=== PATIENT | male | born 1945 | race Caucasian/White ===

== ENCOUNTER 2017-08-29 13:01 | Inpatient (IN) | payer MEDICARE ==
[2017-08-29] VITALS (11 sets, daily range): BP systolic 160–203; BP diastolic 75–98; PULSE 77–98; RESP 16–30; TEMP 97.8–100; O2SAT 90–100
[~2017-08-29] VITALS: Ht 182.9 cm; Wt 75.3 kg
[~2017-08-29 13:01] MED LIST: AMLO5TAB96 PO; COUM3TAB PO; SYNT25TA PO
[2017-08-29] MEDS ORDERED: SODIUM CHLOR 0.9% 1000 ML INJ 1,000 ML IV ONE (13:03)
[2017-08-29 13:15] LABS: AUTOMATED NEUTROPHIL # 4.3 TH/MM3 (1.8-7.7); BASOPHIL # 0.1 TH/MM3 (0-0.2); BASOPHIL % 1.2 % (0.0-2.0); EOSINOPHIL # 0.1 TH/MM3 (0-0.4); EOSINOPHIL % 2.4 % (0.0-4.0); HEMATOCRIT 42.5 % (39.0-51.0); HEMOGLOBIN 14.3 GM/DL (13.0-17.0); LYMPH % 12.5 % (9.0-44.0); LYMPHOCYTE # 0.7 TH/MM3 (1.0-4.8); MEAN CELL VOLUME 98.4 FL (80.0-100.0); MEAN CORPUSCULAR HGB CONC 33.5 % (32.0-36.0); MEAN PLATELET VOLUME 7.4 FL (7.0-11.0); MONOCYTE # 0.6 TH/MM3 (0-0.9); NEUT % 73.9 % (16.0-70.0); PLATELET COUNT 203 TH/MM3 (150-450); RED BLOOD COUNT 4.32 MIL/MM3 (4.50-5.90); RED CELL DISTRIBUTION WIDTH 12.6 % (11.6-17.2); WHITE BLOOD COUNT 5.8 TH/MM3 (4.0-11.0)
[2017-08-29 13:28] LABS: PROTHROMBIN TIME - PATIENT 10.2 SEC (9.8-11.6)
[2017-08-29] MEDS ORDERED: niCARdipine INJ 25 MG in SODIUM CHLOR 0.9% 250 ML INJ 240 ML IV ONE (13:30)
[2017-08-29 13:35] LABS: CHLORIDE 98 MEQ/L (98-107); SODIUM (NA) 135 MEQ/L (136-145)
--- NOTE | 2017-08-29 13:37 | PD ---
HPI Time Seen by Provider: 13:03 History of Present Illness HPI Patient presents via [facility], stroke alert. 72-year-old male history of hypertension and GI bleed 3 years ago. History of left-sided DVT 8-10 years ago. No medications for 2 years. Nonsmoker. Nondiabetic. Per the patient went for a walk at 10 AM and had no deficits at that time. Returned from his walker 11:30 with left-sided weakness and left-sided gaze. Patient's gave him 2 baby aspirin and called [facility]. Blood pressure per [facility] 204/95 with a blood sugar of 90. Per the patient is a heavy drinker. PFSH Past Medical History Diminished Hearing: No Hypertension: Yes Musculoskeletal: Yes Neurologic: No Psychiatric: No Respiratory: Yes (CLOT IN LUNG) Immunizations Current: No Thyroid Disease: Yes Social History Alcohol Use: Yes (OCCASIONAL) Tobacco Use: No Substance Use: No Allergies-Medications (Allergen,Severity, Reaction): Coded Allergies: No Known Allergies (Unverified Allergy, Unknown, 08/29/17) Reported Meds & Prescriptions Reported Meds & Active Scripts Active Reported Synthroid (Levothyroxine Sodium) 25 Mcg Tab 25 Mcg PO DAILY Norvasc (Amlodipine Besylate) 5 Mg Tab 5 Mg PO DAILY Coumadin (Warfarin Sodium) 3 Mg Tab 3 Mg PO DAILY Per patient's, patient is on no medication, she did give him 2 aspirin prior to arrival Review of Systems ROS Limitations: Altered Mental Status General / Constitutional: No: Fever Eyes: No: Visual changes HENT: No: Headaches Cardiovascular: No: Chest Pain or Discomfort Respiratory: No: Shortness of Breath Gastrointestinal: No: Abdominal Pain Genitourinary: No: Dysuria Musculoskeletal: No: Pain Skin: No Rash Neurologic: Positive: Weakness, Focal Abnormalities, Coordination Problem Psychiatric: No: Depression Endocrine: No: Polydipsia Hematologic/Lymphatic: No: Easy Bruising Physical Exam Narrative GENERAL: Alert and oriented to place and month and age SKIN: Focused skin assessment warm/dry. HEAD: Atraumatic. Normocephalic. EYES: Pupils equal and round reactive to light accommodation no scleral icterus. No injection or drainage. ENT: No nasal bleeding or discharge. Mucous membranes pink and moist. NECK: Trachea midline. No JVD. CARDIOVASCULAR: Regular rate and rhythm. No murmur appreciated. RESPIRATORY: No accessory muscle use. Clear to auscultation. Breath sounds equal bilaterally. GASTROINTESTINAL: Abdomen soft, non-tender, nondistended. Hepatic and splenic margins not palpable. MUSCULOSKELETAL: No obvious deformities. No clubbing. No cyanosis. No edema. NEUROLOGICAL: Awake and alert. No obvious cranial nerve deficits. Left-sided gaze. Drift left upper extremity less than 5 seconds with weakness. Drift left lower extremity less than 5 seconds with weakness. Normal speech. Hesitant /pause on responses to questions and commands PSYCHIATRIC: Appropriate mood and affect NIHSS scale of 6 Data Data Last Documented VS Vital Signs Date Time Temp Pulse Resp B/P (MAP) Pulse Ox O2 Delivery O2 Flow Rate FiO2 08/29/17 13:31 76 203/96 08/29/17 13:01 98.1 16 90 Orders Orders Cath For Specimen (08/29/17 13:03) Neuro Checks Q2HX12,Q4H (08/29/17 13:03) Nursing Bedside Swallow Assess .ONCE (08/29/17 13:03) Activity Bed Rest (08/29/17 13:03) Diet Npo (08/29/17 Lunch) Prothrombin Time / Inr (Pt) (08/29/17 13:03) Act Partial Throm Time (Ptt) (08/29/17 13:03) Complete Blood Count With Diff (08/29/17 13:03) Basic Metabolic Panel (Bmp) (08/29/17 13:03) Fibrinogen (08/29/17 13:03) Creatine Kinase (Cpk) (08/29/17 13:03) Troponin I (08/29/17 13:03) Ua Includes Microscopic (08/29/17 13:03) Drug Screen, Random Urine (08/29/17 13:03) Type And Screen (08/29/17 13:03) Ct Brain W/O Iv Contrast(Rout) (08/29/17 ) Electrocardiogram (08/29/17 ) Consult Neurology (08/29/17 13:03) Sodium Chlor 0.9% 1000 Ml Inj (Ns 1000 M (08/29/17 13:03) Blood Glucose (08/29/17 13:03) Ecg Monitoring (08/29/17 13:03) Iv Access Insert/Monitor (08/29/17 13:03) NPO (08/29/17 13:03) Oximetry (08/29/17 13:03) Oxygen Administration (08/29/17 13:03) Resp Oxygen Lukas C Titrat 1-4 L (08/29/17 13:03) Nicardipine Inj (Cardene Inj) (08/29/17 13:30) (Hub Use Only)Inp Phy Cons/Ref (08/29/17 ) ^ Call Pharmacy (08/29/17 13:38) Nih Stroke Scale - Nihss .ONCE (08/29/17 13:38) Urinary Catheter Insert/Apply (08/29/17 13:38) Anticoagulant Alert (08/29/17 13:38) ^ Post Infusion Restrictions (08/29/17 13:38) ^ Medication Alert (08/29/17 13:38) Vital Signs (Adult) .As directed (08/29/17 13:38) Notify Dr: Blood Pressure (08/29/17 13:38) ^ Medication Alert (08/29/17 13:38) Alteplase Bolus (Activase Bolus) (08/29/17 13:45) Alteplase Drip (Activase Drip) (08/29/17 13:45) Sodium Chloride 0.9% Inj (Ns Inj) (08/29/17 13:45) Misc Nursing Information (08/29/17 13:45) Resp Oxygen Lukas C Titrat 1-4 L (08/29/17 ) Labetalol Inj (Trandate Inj) (08/29/17 13:45) CKMB (08/29/17 13:00) CKMB% (08/29/17 13:00) Cta Brain W Iv Contrast W 3d (08/29/17 ) Cta Neck W Iv Contrast W 3d (08/29/17 ) Echo 2d Comp With Doppler (08/29/17 ) Lipid Profile (08/29/17 13:51) Mri Brain W&W/O Contrast (08/29/17 ) Admit Order (Ed Use Only) (08/29/17 ) Vital Signs (Adult) Q4H (08/29/17 14:13) Diet Npo (08/29/17 Dinner) Activity Bed Rest (08/29/17 14:13) Notify Dr: Other (08/29/17 14:13) Labs Laboratory Tests Test 08/29/17 13:00 08/29/17 13:56 White Blood Count 5.8 TH/MM3 Red Blood Count 4.32 MIL/MM3 Hemoglobin 14.3 GM/DL Hematocrit 42.5 % Mean Corpuscular Volume 98.4 FL Mean Corpuscular Hemoglobin 33.0 PG Mean Corpuscular Hemoglobin Concent 33.5 % Red Cell Distribution Width 12.6 % Platelet Count 203 TH/MM3 Mean Platelet Volume 7.4 FL Neutrophils (%) (Auto) 73.9 % Lymphocytes (%) (Auto) 12.5 % Monocytes (%) (Auto) 10.0 % Eosinophils (%) (Auto) 2.4 % Basophils (%) (Auto) 1.2 % Neutrophils # (Auto) 4.3 TH/MM3 Lymphocytes # (Auto) 0.7 TH/MM3 Monocytes # (Auto) 0.6 TH/MM3 Eosinophils # (Auto) 0.1 TH/MM3 Basophils # (Auto) 0.1 TH/MM3 CBC Comment DIFF FINAL Differential Comment Prothrombin Time 10.2 SEC Prothromb Time International Ratio 1.0 RATIO Activated Partial Thromboplast Time 22.8 SEC Fibrinogen 278 mg/dL Blood Urea Nitrogen 18 MG/DL Creatinine 1.30 MG/DL Random Glucose 100 MG/DL Calcium Level 8.9 MG/DL Sodium Level 135 MEQ/L Potassium Level 3.7 MEQ/L Chloride Level 98 MEQ/L Carbon Dioxide Level 26.9 MEQ/L Anion Gap 10 MEQ/L Estimat Glomerular Filtration Rate 54 ML/MIN Total Creatine Kinase 449 U/L Creatine Kinase MB 6.5 NG/ML Creatine Kinase MB % 1.4 % Troponin I LESS THAN 0.02 NG/ML MDM Medical Decision Making Medical Screen Exam Complete: Yes Emergency Medical Condition: Yes Differential Diagnosis CVA, TIA, global amnesia Narrative Course EKG on arrival normal sinus rhythm pulse 95. Assessment and plan discussed with and patient at bedside. NIHHS score 6. Spoke with Dr. Tuttle/radiology for wet CT scan read which showed no acute bleed. Spoke with Dr. Cordero/neurology who recommended improved blood pressure control prior to TPA administration and CTA. TPA and CTA of the brain and neck initiated, Dr. Cordero present for exam. EKG reveals sinus rhythm with first-degree AV block rate of 97. Physician Communication Physician Communication Spoke with Dr. Angulo who is in agreement for admission to [facility], she will notify Dr. Goodman who is covering ISC Diagnosis Primary Impression: CVA (cerebral vascular accident) Qualified Codes: I63.9 - Cerebral infarction, unspecified Jasmeet Crooks MD Aug 29, 2017 13:37
[2017-08-29 13:38] LABS: BICARBONATE 26.9 MEQ/L (21.0-32.0); BLOOD UREA NITROGEN 18 MG/DL (7-18); CALCIUM 8.9 MG/DL (8.5-10.1); GLUCOSE,RANDOM 100 MG/DL (74-106)
[2017-08-29 13:42] LABS: GLOMERULAR FILTRATION RATE 54 ML/MIN (>89)
[2017-08-29] MEDS ORDERED: MISCELLANEOUS NURSING INFORMATION XX PRN (13:45)
[2017-08-29] MEDS ORDERED: LABETALOL HCL 100 MG/20 ML VIAL IV PUSH ONE (13:45)
[2017-08-29] MEDS ORDERED: ALTEPLASE DRIP 81 MG in SYRINGE/BAG 1 EA IV ONE (13:45)
[2017-08-29] MEDS ORDERED: SODIUM CHLORIDE 0.9% 50 ML BAG IVF ONE (13:45)
[2017-08-29] MEDS ORDERED: ALTEPLASE BOLUS 9 MG/9 ML SYR IV ONE (13:45)
[2017-08-29 13:46] LABS: TROPONIN I LESS THAN 0.02 NG/ML (0.02-0.05)
--- NOTE | 2017-08-29 13:46 | RADRPT ---
EXAM DATE/TIME: 08/29/2017 12:55 [facility] COMPARISON: No previous studies available for comparison. INDICATIONS : Stroke alert. Left sided gaze and weakness. RADIATION DOSE: 56.35 CTDIvol (mGy) This report was called by Dr. Tuttle to Dr. Crooks at 13: 05 MEDICAL HISTORY : Non-responsive. SURGICAL HISTORY : Non-responsive. ENCOUNTER: Initial ACUITY: 1 day PAIN SCALE: Non-responsive LOCATION: cranial TECHNIQUE: Multiple contiguous axial images were obtained of the head. Using automated exposure control and adj ustment of the mA and/or kV according to patient size, radiation dose was kept as low as reasonably a chievable to obtain optimal diagnostic quality images. DICOM format image data is available electro nically for review and comparison. FINDINGS: CEREBRUM: The ventricles are normal for age. No evidence of midline shift, mass lesion, hemorrhage or acute in farction. No extra-axial fluid collections are seen. POSTERIOR FOSSA: The cerebellum and brainstem are intact. The 4th ventricle is midline. The cerebellopontine angle i s unremarkable. EXTRACRANIAL: The visualized portion of the orbits is intact. SKULL: The calvaria is intact. No evidence of skull fracture. CONCLUSION: 1. No evidence of acute intracranial pathology. No masses are identified. Haseeb Nesbitt MD on August 29, 2017 at 13:42 Board Certified Radiologist. This report was verified electronically.
--- NOTE | 2017-08-29 14:04 | MB ---
cc: CHRISTY BAH DATE OF CONSULTATION: 08/29/2017 REASON FOR CONSULTATION: Stroke alert HISTORY OF PRESENT ILLNESS Mr. Templeton is a 72-year-old man who was in his usual state of health until earlier today around 11:30 developed the acute onset of left-sided weakness in both the left leg and left arm with slurred speech. He came to the ER. His blood pressure was elevated 204/95. He has no previous history of stroke or TIA. PAST MEDICAL HISTORY 1. History of GI bleed about 10 years ago but none recently. 2. History of DVT in the past. 3. Pulmonary embolus in the past. 4. Hypothyroidism. 5. Hypertension. MEDICATIONS AT HOME 1. Norvasc 5 mg daily. 2. Synthroid 25 mcg daily. His states she is not on any blood thinners. NEUROLOGIC EXAMINATION VITAL SIGNS: Blood pressure 190/92, pulse 76. Higher cortical function, he is alert. He has a left gaze. Speech dysarthric. Cranial nerves otherwise intact. There is no facial asymmetry. The pupils are equal and reactive. On motor exam, he has left arm and left leg weakness rated at 4/5. He has 5/5 strength on the right. Reflexes are 2+ symmetric. IMAGING STUDIES: CT scan of the brain is negative. LABORATORY DATA: PT 10.2, INR 1. APTT 22.8. White count is 5,800, hemoglobin 14.3, hematocrit 42.5%, platelet count 203,000. Sodium is 135, potassium 3.7, chloride 98, CO2 26.9. The BUN is 18. Glucose is 100. Calcium 8.9. IMPRESSION: Acute right hemisphere stroke. The patient is a candidate for IV TPA, however, will need to control blood pressure initially. The patient has been started on Cardene and we are awaiting control of blood pressure before beginning IV TPA. The NIH stroke scale is 6, so therefore after TPA is initiated, would recommend proceeding with CT angiogram of the brain and of the neck for further evaluation to see if there is any sign of large vessel occlusion. MD BRADY Hand/SOSA /1:37 PM /1:42 PM
[2017-08-29] MEDS ORDERED: IODIXANOL 320 MG/ML 10 ML VIAL (for Rad CT) IVCONTRAST ONE (14:25)
--- NOTE | 2017-08-29 15:09 | RADRPT ---
EXAM DATE/TIME: 08/29/2017 14:22 [facility] COMPARISON: No previous studies available for comparison. INDICATIONS : Stroke alert. Post TPA. IV CONTRAST: 75 cc Visipaque (iodixanol) IV ; Cumulative dose for multiple exams. RADIATION DOSE: 50.30 CTDIvol (mGy) ; Patient body habitus MEDICAL HISTORY : Hypertension. SURGICAL HISTORY : None. ENCOUNTER: Initial ACUITY: 1 day PAIN SCALE: Non-responsive LOCATION: cranial TECHNIQUE: Volumetric scanning was performed using a multi-row detector CT scanner. The data was post processed with a variety of visualization algorithms including full volume maximum intensity projection, multi -planar sliding thin slab reformation, curved planar reformation, and surface rendering techniques. Using automated exposure control and adjustment of the mA and/or kV according to patient size, radiat ion dose was kept as low as reasonably achievable to obtain optimal diagnostic quality images. DICO M format image data is available electronically for review and comparison. FINDINGS: There is no evidence of major vessel occlusion. There is an aplastic A1 segment on the right. Examination of posterior fossa also demonstrates no evidence of aneurysm or vascular malformation. Th e vertebral arteries are codominant. There is mucosal disease involving the ethmoid air cells and ple ural sinuses bilaterally. CONCLUSION: 1. Unremarkable CT angiography of the brain. Haseeb Nesbitt MD on August 29, 2017 at 15:00 Board Certified Radiologist. This report was verified electronically.
--- NOTE | 2017-08-29 15:40 | RADRPT ---
EXAM DATE/TIME: 08/29/2017 14:22 [facility] COMPARISON: No previous studies available for comparison. INDICATIONS : Stroke alert. Post TPA. IV CONTRAST: 75 cc Visipaque (iodixanol) IV ; Cumulative dose for multiple exams. RADIATION DOSE: 50.30 CTDIvol (mGy) ; Combined studies MEDICAL HISTORY : Hypertension. SURGICAL HISTORY : None. ENCOUNTER: Initial ACUITY: 1 day PAIN SCALE: Non-responsive LOCATION: neck Elevated flow velocities and ICA/CCA ratios have been found to correlate with increased degrees of vessel stenosis, calculated as percentage of diameter relative to a normal segment of distal ICA/CCA. TECHNIQUE: Volumetric scanning was performed using a multirow detector CT scanner. The data was post processed with a variety of visualization algorithms including full-volume maximum intensity projection, multip lanar sliding thin-slab reformation, curved-planar reformation, and surface-rendering techniques. Us ing automated exposure control and adjustment of the mA and/or kV according to patient size, radiatio n dose was kept as low as reasonably achievable to obtain optimal diagnostic quality images. DICOM f ormat image data is available electronically for review and comparison. FINDINGS: No abnormality is identified within the lung apices. There is bovine origin of vessels from the arch without evidence of proximal stenosis. Vertebral arteries are codominant. Examination of the right common carotid artery demonstrates the vessel to be widely patent. There is 10-20% stenosis at the origin of the internal carotid artery with calcific plaque present More distal ly the cervical internal carotid artery is intact. Examination of the left common carotid artery demonstrates the vessel to be widely patent. There is 2 0-30% stenosis at the origin of the internal carotid artery and bifurcation with calcific plaque pres ent. A vascular loop is present in the distal internal carotid artery. More distally the cervical int ernal carotid artery is intact. Percent stenosis is calculated using the diameter of the stenotic region over the diameter of the nor mal distal internal carotid artery. CONCLUSION: 1. No evidence of hemodynamic significant lesion. There is 10-20% on the right and 20-30% on the left . Haseeb Nesbitt MD on August 29, 2017 at 15:36 Board Certified Radiologist. This report was verified electronically.
[2017-08-29] MEDS ORDERED: niCARdipine INJ 25 MG in SODIUM CHLOR 0.9% 250 ML INJ 240 ML IV PRN (16:45)
[2017-08-29] MEDS ORDERED: DEXTROSE 50% IN WATER 50 ML VIAL(D50) IV PUSH PRN (16:45)
[2017-08-29] MEDS ORDERED: CHLORHEXIDINE GLUCONATE 2 % 1 PACK (2 CLOTHS) TOP PRN (16:45)
[2017-08-29] MEDS ORDERED: RESP: ALBUTEROL 2.5 MG/3 ML NEB (PRN) INH (16:45)
[2017-08-29] MEDS ORDERED: ACETAMINOPHEN 325 MG TAB PO PRN (16:45)
[2017-08-29] MEDS ORDERED: MISCELLANEOUS NURSING INFORMATION XX SCH (16:45)
[2017-08-29] MEDS ORDERED: ONDANSETRON HCL 4 MG/2 ML VIAL IV PUSH PRN (16:45)
[2017-08-29] MEDS ORDERED: SENNOSIDES 8.6 MG TAB PO PRN (16:45)
[2017-08-29] MEDS ORDERED: SODIUM CHLORIDE 0.9% FLUSH 10 ML FLUSH IV FLUSH PRN (16:45)
[2017-08-29] MEDS ORDERED: MAGNESIUM HYDROXIDE SUSP 30 ML CUP PO PRN (16:45)
[2017-08-29] MEDS ORDERED: MORPHINE SULFATE 2 MG/ML INJ IV PUSH PRN (16:45)
[2017-08-29] MEDS ORDERED: GLUCAGON 1 MG/ML VIAL OTHER PRN (16:45)
[2017-08-29] MEDS ORDERED: BISACODYL 10 MG SUPP RECTAL PRN (16:45)
[2017-08-29 17:11] LABS: BILIRUBIN, URINE NEG (NEG); BLOOD, URINE MOD (NEG); GLUCOSE,URINE NEG (NEG); KETONE, URINE TRACE mg/dL (NEG); NITRITE,URINE NEG (NEG); URINE LEUKOCYTE ESTERASE NEG (NEG)
[2017-08-29 17:13] LABS: URINE COLOR STRAW (YELLW/STRAW)
[2017-08-29 17:17] LABS: AMORPHOUS SEDIMENT, URINE FEW; SQUAMOUS EPITHELIAL CELL URINE 0-5 /hpf (0-5)
--- NOTE | 2017-08-29 17:50 | RADRPT ---
EXAM DATE/TIME: 08/29/2017 16:38 [facility] COMPARISON: CT BRAIN W/O CONTRAST, August 29, 2017, 12:55. INDICATIONS : Stroke alert earlier today. Evaluate for bleed. Worsening symptoms since TPA was given. RADIATION DOSE: 61.75 CTDIvol (mGy) ; Patient motion MEDICAL HISTORY : Hypertension. SURGICAL HISTORY : None. ENCOUNTER: Subsequent ACUITY: 1 day PAIN SCALE: Non-responsive LOCATION: cranial TECHNIQUE: Multiple contiguous axial images were obtained of the head. Using automated exposure control and adj ustment of the mA and/or kV according to patient size, radiation dose was kept as low as reasonably a chievable to obtain optimal diagnostic quality images. DICOM format image data is available electro nically for review and comparison. FINDINGS: CEREBRUM: The ventricles are normal for age. No evidence of midline shift, mass lesion, hemorrhage or acute in farction. No extra-axial fluid collections are seen. POSTERIOR FOSSA: The cerebellum and brainstem are intact. The 4th ventricle is midline. The cerebellopontine angle i s unremarkable. EXTRACRANIAL: The visualized portion of the orbits is intact. SKULL: The calvaria is intact. No evidence of skull fracture. CONCLUSION: 1. No evidence of acute intracranial pathology. No masses are identified. Haseeb Nesbitt MD on August 29, 2017 at 17:46 Board Certified Radiologist. This report was verified electronically.
[2017-08-29] MEDS: ARTIFICIAL TEARS OPTH SOLN 15 ML BTL EACH EYE SCH ×2 (18:00→18:30)
[2017-08-29] MEDS ORDERED: PANT40TA3 PO (19:00)
[2017-08-29 19:13] LABS: CHOLESTEROL/ HDL RATIO 2.08 RATIO; HDL CHOLESTEROL 114.6 MG/DL (40.0-60.0)
[2017-08-29] MEDS: DOCUSATE SODIUM 50 MG/SENNA 8.6 MG TAB PO SCH (20:16)
[2017-08-29] MEDS: SODIUM CHLORIDE 0.9% FLUSH 10 ML FLUSH IV FLUSH SCH (20:16)
[2017-08-29] MEDS: PRAVASTATIN SOD 40 MG TAB PO SCH (20:17)
--- NOTE | 2017-08-29 20:25 | HHI.HP ---
HPI Service Critical Care Medicine Primary Care Physician No Primary Care Physician Admission Diagnosis CVA Diagnosis: Travel History International Travel<30 Days: No Contact w/Intl Traveler <30 Da: No Traveled to Known Affected Are: No History of Present Illness 72-year-old man who was in his usual state of health until earlier today around 11:30 developed sudden onset of left-sided weakness in both the left leg and left arm with slurred speech. He presented initially to emergency department at [facility]. His blood pressure was elevated 204/95. After correction of his blood pressure he received infusion of alteplase and was transferred to [facility]. Review of Systems Constitutional: COMPLAINS OF: Fatigue, Dizziness, DENIES: Diaphoretic episodes , Fever, Weight gain, Weight loss, Chills, Change in appetite, Night Sweats Endocrine: DENIES: Heat/cold intolerance, Polydipsia, Polyuria, Polyphagia Eyes: DENIES: Blurred vision, Diplopia, Eye inflammation, Eye pain, Vision loss , Photosensitivity, Double Vision Ears, nose, mouth, throat: DENIES: Tinnitus, Hearing loss, Vertigo, Nasal discharge, Oral lesions, Throat pain, Hoarseness, Ear Pain, Running Nose, Epistaxis, Sinus Pain, Toothache, Odynophagia Respiratory: DENIES: Apneas, Cough, Snoring, Wheezing, Hemoptysis, Sputum production, Shortness of breath Cardiovascular: DENIES: Chest pain, Palpitations, Syncope, Dyspnea on Exertion , PND, Lower Extremity Edema, Orthopnea, Claudication Gastrointestinal: DENIES: Abdominal pain, Black stools, Bloody stools, Constipation, Diarrhea, Nausea, Vomiting, Difficulty Swallowing, Anorexia Genitourinary: DENIES: Sexual dysfunction, Urinary frequency, Urinary incontinence, Urgency, Hematuria, Dysuria, Nocturia, Penile Discharge, Testicular Pain, Testicular Swelling Musculoskeletal: DENIES: Joint pain, Muscle aches, Stiffness, Joint Swelling, Back pain, Neck pain Integumentary: DENIES: Abnormal pigmentation, Nail changes, Pruritus, Rash Hematologic/lymphatic: DENIES: Bruising, Lymphadenopathy Immunologic/allergic: DENIES: Eczema, Urticaria Neurologic: COMPLAINS OF: Abnormal gait, Localized weakness, Speech Problems, Poor Balance, DENIES: Headache, Paresthesias, Seizures, Tremor Psychiatric: COMPLAINS OF: Anxiety, DENIES: Confusion, Mood changes, Depression , Hallucinations, Agitation, Suicidal Ideation, Homicidal Ideation, Delusions Past Family Social History Allergies: Coded Allergies: No Known Allergies (Unverified Allergy, Unknown, 08/29/17) Past Medical History Hypertension Hypothyroidism 1 history of remote seizure in the past not on medications History of GI bleed about 10 years ago but none recently. History of DVT in the past. Pulmonary embolus in the past. Past Surgical History No Significant past surgical history Reported Medications Reported Meds & Active Scripts Active Reported Pantoprazole (Pantoprazole Sodium) 40 Mg Tab 40 Mg PO DAILY Active Ordered Medications Current Medications Medications (Trade) Dose Ordered Sig/Nestor Route PRN Reason Start Time Stop Time Status Last Admin Dose Admin Sodium Chloride 1,000 ml @ 70 mls/hr [id number] ONCE IV 08/29/17 13:03 08/30/17 03:20 08/29/17 16:17 Miscellaneous Information No Heparin, Warfarin, Aspir... UNSCH PRN XX SEE DOSE INSTRUCTIONS 08/29/17 13:45 08/30/17 13:44 Sodium Chloride 1,000 ml @ 84 mls/hr [id number] IV 08/29/17 16:41 Sodium Chloride (NS Flush) 2 ml UNSCH PRN IV FLUSH FLUSH AFTER USING IV ACCESS 08/29/17 16:45 Sodium Chloride (NS Flush) 2 ml BID IV FLUSH 08/29/17 21:00 Acetaminophen (Tylenol) 650 mg Q6H PRN PO FEVER >101F 08/29/17 16:45 Acetaminophen/ Hydrocodone Bitart ([place] 5-325 Mg) 1 tab Q4H PRN PO PAIN SCALE 1 TO 5 08/29/17 16:45 Morphine Sulfate (Morphine Inj) 2 mg Q2H PRN IV PUSH PAIN SCALE 6 TO 10 08/29/17 16:45 Famotidine (Pepcid Inj) 20 mg Q12HR IV PUSH 08/29/17 21:00 Artificial Tears (Tears Naturale Opth Soln) 1 drop TID EACH EYE 08/29/17 18:00 Ondansetron HCl (Zofran Inj) 4 mg Q6H PRN IV PUSH NAUSEA OR VOMITING 08/29/17 16:45 Albuterol Sulfate (Albuterol Neb) 2.5 mg Q2HR NEB PRN INH SOB/WHEEZING 08/29/17 16:45 Miscellaneous Information 1 [id number] XX 08/29/17 16:45 Chlorhexidine Gluconate (Chlorhexidine 2% Cloth) 3 pack Taper DAILY@04 TOP 08/30/17 04:00 08/26/18 03:59 Chlorhexidine Gluconate (Chlorhexidine 2% Cloth) 3 pack UNSCH PRN TOP HYGIENIC CARE 08/29/17 16:45 Senna/Docusate Sodium (Livier-Colace) 1 tab BID PO 08/29/17 21:00 Magnesium Hydroxide (Milk Of Magnesia Liq) 30 ml Q12H PRN PO Mild constipation 08/29/17 16:45 Sennosides (Senokot) 17.2 mg Q12H PRN PO Moderate constipation 08/29/17 16:45 Bisacodyl (Dulcolax Supp) 10 mg DAILY PRN RECTAL SEVERE CONSITIPATION 08/29/17 16:45 Lactulose (Lactulose Liq) 30 ml DAILY PRN PO SEVERE CONSITIPATION 08/29/17 16:45 Nicardipine HCl 25 mg/Sodium Chloride 250 ml @ 50 mls/hr TITRATE PRN IV Blood pressure management 08/29/17 16:45 Labetalol HCl (Trandate Inj) 10 mg Q1HR PRN IV PUSH SBP>185, DBP>110, HR>65 08/29/17 16:45 Enalaprilat (Vasotec Inj) 2.5 mg Q6H PRN IV PUSH SBP> OR = 185, DBP> OR = 110 08/29/17 16:45 Pravastatin Sodium (Pravachol) 40 mg HS PO 08/29/17 21:00 Insulin Aspart (NovoLOG SUPPLEMENTAL SCALE) 1 ACHS SQ 08/29/17 17:00 Dextrose (D50w (Vial) Inj) 50 ml UNSCH PRN IV PUSH HYPOGLYCEMIA-SEE COMMENTS 08/29/17 16:45 Glucagon (Glucagon Inj) 1 mg UNSCH PRN OTHER HYPOGLYCEMIA-SEE COMMENTS 08/29/17 16:45 Pantoprazole Sodium (Protonix) 40 mg DAILY PO 08/30/17 09:00 Family History No family history significant of the early coronary artery disease TIA or stroke Social History Negative 3 Physical Exam Vital Signs Vital Signs Date Time Temp Pulse Resp B/P (MAP) Pulse Ox O2 Delivery O2 Flow Rate FiO2 08/29/17 18:00 97.8 98 29 174/78 (110) 92 08/29/17 13:58 84 16 169/77 (107) 95 Nasal Cannula 2.00 08/29/17 13:53 82 16 160/75 (103) 95 Nasal Cannula 2.00 08/29/17 13:43 91 16 202/88 (126) 95 Nasal Cannula 2.00 08/29/17 13:37 87 16 181/98 (125) 95 Nasal Cannula 2.00 08/29/17 13:33 83 16 195/89 (124) 97 Nasal Cannula 2.00 08/29/17 13:31 76 203/96 08/29/17 13:27 77 18 203/96 (131) 95 Nasal Cannula 2.00 08/29/17 13:01 94 Nasal Cannula 2.00 08/29/17 13:01 98.1 78 16 185/89 (121) 90 Physical Exam GENERAL: Well-nourished, well-developed patient. Somewhat anxious SKIN: Warm and dry. HEAD: Normocephalic. EYES: No scleral icterus. No injection or drainage. NECK: Supple, trachea midline. No JVD or lymphadenopathy. CARDIOVASCULAR: Regular rate and rhythm without murmurs, gallops, or rubs. RESPIRATORY: Breath sounds equal bilaterally. No accessory muscle use. GASTROINTESTINAL: Abdomen soft, non-tender, nondistended. MUSCULOSKELETAL: No cyanosis, or edema. BACK: Nontender without obvious deformity. NEURO EXAM: GCS: M 6V5 E4 Mental Status: The patient is alert and oriented to person, place, and time with normal speech. Cranial Nerves: Visual acuity intact bilaterally. Visual brar normal in all quadrants. Pupils are round, reactive to light. Extraocular movements are intact without ptosis. Hearing is normal bilaterally. Voice is normal. Tongue protrudes midline and moves symmetrically. Reflexes: Biceps, patellar, and Achilles are 2/4 bilaterally. No clonus. Sensation: Sensation is intact bilaterally to pain and light touch. Two-point discrimination is intact. Motor: Good muscle tone. Strength is 5/5 bilaterally. Cerebellar: [id number] and gega-[id number] test normal bilaterally. Laboratory Laboratory Tests Test 08/29/17 13:00 08/29/17 13:56 08/29/17 17:01 08/29/17 17:04 White Blood Count 5.8 Red Blood Count 4.32 Hemoglobin 14.3 Hematocrit 42.5 Mean Corpuscular Volume 98.4 Mean Corpuscular Hemoglobin 33.0 Mean Corpuscular Hemoglobin Concent 33.5 Red Cell Distribution Width 12.6 Platelet Count 203 Mean Platelet Volume 7.4 Neutrophils (%) (Auto) 73.9 Lymphocytes (%) (Auto) 12.5 Monocytes (%) (Auto) 10.0 Eosinophils (%) (Auto) 2.4 Basophils (%) (Auto) 1.2 Neutrophils # (Auto) 4.3 Lymphocytes # (Auto) 0.7 Monocytes # (Auto) 0.6 Eosinophils # (Auto) 0.1 Basophils # (Auto) 0.1 CBC Comment DIFF FINAL Differential Comment Prothrombin Time 10.2 Prothromb Time International Ratio 1.0 Activated Partial Thromboplast Time 22.8 Fibrinogen 278 Blood Urea Nitrogen 18 Creatinine 1.30 Random Glucose 100 Calcium Level 8.9 Sodium Level 135 Potassium Level 3.7 Chloride Level 98 Carbon Dioxide Level 26.9 Anion Gap 10 Estimat Glomerular Filtration Rate 54 Total Creatine Kinase 449 Creatine Kinase MB 6.5 Creatine Kinase MB % 1.4 Troponin I LESS THAN 0.02 Triglycerides Level 50 Cholesterol Level 239 LDL Cholesterol 114 HDL Cholesterol 114.6 Cholesterol/HDL Ratio 2.08 Urine Collection Type CLEAN CATCH Urine Color STRAW Urine Turbidity CLEAR Urine pH 7.0 Urine Specific [place] 1.025 Urine Protein TRACE Urine Glucose (UA) NEG Urine Ketones TRACE Urine Occult Blood MOD Urine Nitrite NEG Urine Bilirubin NEG Urine Leukocyte Esterase NEG Urine RBC 4-9 Urine Squamous Epithelial Cells 0-5 Urine Amorphous Sediment FEW Urine Collection Time 1701 Urine Opiates Screen NEG Urine Barbiturates Screen NEG Urine Amphetamines Screen NEG Urine Benzodiazepines Screen NEG Urine Cocaine Screen NEG Urine Cannabinoids Screen NEG Result Diagram: 08/29/17 1300 08/29/17 1300 Imaging Last [address] 08/29/17 1632 Signed Impressions: Service Date/Time: Tuesday, August 29, 2017 16:38 - CONCLUSION: 1. No evidence of acute intracranial pathology. No masses are identified. Haseeb Nesbitt MD Neck CTA 08/29/17 0000 Signed Impressions: Service Date/Time: Tuesday, August 29, 2017 14:22 - CONCLUSION: 1. No evidence of hemodynamic significant lesion. There is 10-20%% on the right and 20-30%% on the left. Haseeb Nesbitt MD Head CTA 08/29/17 0000 Signed Impressions: Service Date/Time: Tuesday, August 29, 2017 14:22 - CONCLUSION: 1. Unremarkable CT angiography of the brain. Haseeb Nesbitt MD Head CT 08/29/17 0000 Signed Impressions: Service Date/Time: Tuesday, August 29, 2017 12:55 - CONCLUSION: 1. No evidence of acute intracranial pathology. No masses are identified. Haseeb Nesbitt MD Septic Shock Reassessment Septic shock perfusion: reassessment completed Caprini VTE Risk Assessment Caprini VTE Risk Assessment: Mod/High Risk (score >= 2) Caprini Risk Assessment Model Point Value = 1 Point Value = 2 Point Value = 3 Point Value = 5 Age 41-60 Minor surgery BMI > 25 kg/m2 Swollen legs Varicose veins or History of unexplained or recurrent spontaneous Oral contraceptives or hormone replacement Sepsis (< 1 month) Serious lung disease, including pneumonia (< 1 month) Abnormal pulmonary function Acute myocardial infarction Congestive heart failure (< 1 month) History of inflammatory bowel disease Medical patient at bed rest Age 61-74 Arthroscopic surgery Major open surgery (> 45 min) Laparoscopic surgery (> 45 min) Malignancy Confined to bed (> 72 hours) Immobilizing plaster cast Central venous access Age >= 75 History of VTE Family history of VTE Factor V Leiden Prothrombin [id number] Lupus anticoagulant Anticardiolipin antibodies Elevated serum homocysteine Heparin-induced thrombocytopenia Other congenital or acquired thrombophilia Stroke (< 1 month) Elective arthroplasty Hip, pelvis, or leg fracture Acute spinal cord injury (< 1 month) Prophylaxis Regimen Total Risk Factor Score Risk Level Prophylaxis Regimen 0-1 Low Early ambulation 2 Moderate Order ONE of the following: *Sequential Compression Device (SCD) *Heparin 5000 units SQ BID 3-4 Higher Order ONE of the following medications: *Heparin 5000 units SQ TID *Enoxaparin/Lovenox 40 mg SQ daily (WT < 150 kg, CrCl > 30 mL/min) *Enoxaparin/Lovenox 30 mg SQ daily (WT < 150 kg, CrCl > 10-29 mL/min) *Enoxaparin/Lovenox 30 mg SQ BID (WT < 150 kg, CrCl > 30 mL/min) AND/OR *Sequential Compression Device (SCD) 5 or more Highest Order ONE of the following medications: *Heparin 5000 units SQ TID (Preferred with Epidurals) *Enoxaparin/Lovenox 40 mg SQ daily (WT < 150 kg, CrCl > 30 mL/min) *Enoxaparin/Lovenox 30 mg SQ daily (WT < 150 kg, CrCl > 10-29 mL/min) *Enoxaparin/Lovenox 30 mg SQ BID (WT < 150 kg, CrCl > 30 mL/min) AND *Sequential Compression Device (SCD) Assessment and Plan Assessment and Plan Acute CVA - CTA head and neck negative - Status post TPA infusion - Blood pressure control with the goal SBP less than 180 - Further imaging in management per neurologist - PT and OT eval and treat as tolerated Hypertension - Cardene drip - SBP goal less than 180 - Start Norvasc by mouth - Vasotec and hydralazine when necessary Hypothyroidism - Synthroid 25 g by mouth daily DVT GI prophylaxis - Teds SCDs - No pharmacological DVT prophylaxis 24 hours post TPA administration - Omeprazole Critical Care: The total critical care time was 35minutes. Time to perform other separately billable procedures was not included in the critical care time. Michael Padron MD Aug 29, 2017 8:25 pm
[2017-08-29] MEDS: INSULIN ASPART SUPPLEMENTAL SCALE SQ SCH (21:00)
[2017-08-30] VITALS (14 sets, daily range): BP systolic 127–160; BP diastolic 67–77; PULSE 60–100; RESP 17–34; TEMP 98.6–99.2; O2SAT 94–98
[2017-08-30] MEDS: FAMOTIDINE 20 MG/2 ML VIAL IV PUSH SCH ×3 (00:16→20:16)
[2017-08-30] MEDS: LORazepam 2 MG/ML VIAL IV PRN ×4 (00:17→12:51)
[2017-08-30] MEDS: levETIRAcetam INJ 100 ML IV SCH ×4 (00:17→23:19)
[2017-08-30] MEDS: CHLORHEXIDINE GLUCONATE 2 % 1 PACK (2 CLOTHS) TOP SCH (00:18)
--- NOTE | 2017-08-30 04:36 | RADRPT ---
EXAM DATE/TIME: 08/30/2017 04:13 [facility] COMPARISON: CT BRAIN W/O CONTRAST, August 29, 2017, 16:38. INDICATIONS : Neuro status change. Post TPA. RADIATION DOSE: 56.35 CTDIvol (mGy) MEDICAL HISTORY : Hypertension. Deep venous thrombosis. Gastroesophageal reflux disease. SURGICAL HISTORY : None. ENCOUNTER: Subsequent ACUITY: 1 day PAIN SCALE: Non-responsive LOCATION: cranial TECHNIQUE: Multiple contiguous axial images were obtained of the head. Using automated exposure control and adj ustment of the mA and/or kV according to patient size, radiation dose was kept as low as reasonably a chievable to obtain optimal diagnostic quality images. DICOM format image data is available electro nically for review and comparison. FINDINGS: CEREBRUM: The ventricles are normal for age. No evidence of midline shift, mass lesion, hemorrhage or acute in farction. No extra-axial fluid collections are seen. POSTERIOR FOSSA: The cerebellum and brainstem are intact. The 4th ventricle is midline. The cerebellopontine angle i s unremarkable. EXTRACRANIAL: The visualized portion of the orbits is intact. SKULL: The calvaria is intact. No evidence of skull fracture. CONCLUSION: 1. No evidence of acute intracranial pathology. No masses are identified. Haseeb Nesbitt MD on August 30, 2017 at 4:34 Board Certified Radiologist. This report was verified electronically.
[2017-08-30] MEDS: SODIUM CHLOR 0.9% 1000 ML INJ 1,000 ML IV SCH ×2 (04:53→16:31)
[2017-08-30] MEDS: INSULIN ASPART SUPPLEMENTAL SCALE SQ SCH ×4 (08:00→20:24)
[2017-08-30] MEDS: DOCUSATE SODIUM 50 MG/SENNA 8.6 MG TAB PO SCH ×2 (08:37→20:16)
[2017-08-30] MEDS: SODIUM CHLORIDE 0.9% FLUSH 10 ML FLUSH IV FLUSH SCH ×2 (08:37→20:16)
[2017-08-30] MEDS: PANTOPRAZOLE SOD 40 MG DELAYED RELEASE TAB PO SCH (08:38)
[2017-08-30] MEDS ORDERED: GADODIAMIDE PF 287 MG/ML 20 ML VIAL (for RAD MRI) IVCONTRAST ONE (10:08)
--- NOTE | 2017-08-30 11:08 | RADRPT ---
EXAM DATE/TIME: 08/30/2017 09:45 [facility] COMPARISON: CT BRAIN W/O CONTRAST, August 30, 2017, 4:13. INDICATIONS : Left sided weakness. Altered mental status. Post TPA. CONTRAST: 16 cc Omniscan (gadodiamide) IV MEDICAL HISTORY : Hypertension. Seizures. DVT, anxiety SURGICAL HISTORY : hip replacement, rt lens implant ENCOUNTER: Subsequent ACUITY: 2 day PAIN SCORE: 0/10 LOCATION: cranial TECHNIQUE: Multiplanar, multisequence MRI of the brain was performed both prior to and following the administrat ion of paramagnetic contrast. FINDINGS: CEREBRUM: The ventricles are normal for age. No evidence of midline shift, mass lesion, hemorrhage or acute in farction. Mild T2 hyperintensity is identified in the right thrombus along the posterior medial vee n. There is no associated or strictured effusion. No extraaxial fluid collections are seen. The pitu itary gland and suprasellar cistern are normal in configuration. WHITE MATTER: Mild periventricular signal abnormalities are seen in the white matter. POSTERIOR FOSSA: The cerebellum and brainstem are intact. The 4th ventricle is midline. The cerebellopontine angle is unremarkable. The cerebellar tonsils are normal in position. DIFFUSION IMAGING: No focal areas of restricted diffusion are seen. No evidence of acute infarction. EXTRACRANIAL: The visualized portions of the orbits and paranasal sinuses are unremarkable. POST-CONTRAST: No abnormal areas of parenchymal or dural enhancement. No evidence of blood-brain barrier breakdown. CONCLUSION: 1. Age-related changes with mild periventricular T2 hyperintensity. 2. Focal T2 hyperintensity in the left thalamus without restricted diffusion or abnormal enhancement. This may represent a small subacute infarct. 3. No evidence of acute infarct, hemorrhage, mass or edema. Star Augustin MD on August 30, 2017 at 11:02 Board Certified Radiologist. This report was verified electronically.
--- NOTE | 2017-08-30 12:36 | ECHRPT ---
Indication: CONCLUSIONS Normal left ventricular size. The left ventricular systolic function is normal with an estimated ejection fraction in the range of 60-65%. Gkhya-tl-yucm mitral valve regurgitation. No aortic valve regurgitation. No aortic valve stenosis. BP: 136 / 67 HR: Rhythm: MEASUREMENTS (Male / Female) Normal Values Technical Quality:Fair 2D ECHO LV Diastolic Diameter PLAX 5.0 cm 4.2 - 5.9 / 3.9 - 5.3 cm LV Systolic Diameter PLAX 3.5 cm IVS Diastolic Thickness 1.2 cm 0.6 - 1.0 / 0.6 - 0.9 cm LVPW Diastolic Thickness 1.5 cm 0.6 - 1.0 / 0.6 - 0.9 cm LV Relative Wall Thickness 0.5 RV Internal Dim ED PLAX 1.9 cm M-MODE Aortic Root Diameter MM 3.5 cm LA Systolic Diameter MM 3.5 cm LA Ao Ratio MM 1.0 AV Cusp Separation MM 2.2 cm DOPPLER Mitral E Point Velocity 58.2 cm/s Mitral A Point Velocity 71.1 cm/s Mitral E to A Ratio 0.8 LV E' Lateral Velocity 8.8 cm/s Mitral E to LV E' Lateral Ratio 6.6 LV E' Septal Velocity 7.8 cm/s Mitral E to LV E' Septal Ratio 7.5 TR Peak Velocity 244.0 cm/s TR Peak Gradient 23.8 mmHg Right Atrial Pressure 10.0 mmHg Pulmonary Artery Systolic Pressu 33.8 mmHg Right Ventricular Systolic Press 33.8 mmHg FINDINGS LEFT VENTRICLE Normal left ventricular size. The left ventricular systolic function is normal with an estimated ejection fraction in the range of 60-65%. RIGHT VENTRICLE Normal right ventricular size and systolic function. LEFT ATRIUM The left atrial size is normal. RIGHT ATRIUM The right atrial size is normal. ATRIAL SEPTUM Normal atrial septal thickness without atrial level shunting by limited color doppler interrogation. AORTA The aortic root and proximal ascending aorta are normal in size on limited imaging. MITRAL VALVE Structurally normal mitral valve. Sthyc-kd-sohi mitral valve regurgitation. AORTIC VALVE Trileaflet aortic valve. No aortic valve regurgitation. No aortic valve stenosis. TRICUSPID VALVE Structurally normal tricuspid valve. PULMONARY VALVE No pulmonary valve regurgitation or stenosis. VESSELS The inferior vena cava is normal in size. PERICARDIUM No pericardial effusion. Forrest Melara MD, FACC (Electronically Signed) Final Date:30 August 2017 12:36
[2017-08-30] MEDS: ARTIFICIAL TEARS OPTH SOLN 15 ML BTL EACH EYE SCH ×2 (13:00→18:00)
--- NOTE | 2017-08-30 14:55 | RADRPT ---
EXAM DATE/TIME: 08/30/2017 14:19 [facility] COMPARISON: CT BRAIN W/O CONTRAST, August 30, 2017, 4:13. INDICATIONS : Altered mental status and dizziness. RADIATION DOSE: 56.35 CTDIvol (mGy) MEDICAL HISTORY : thyroid disease, deep vein thrombosis SURGICAL HISTORY : None. ENCOUNTER: Initial ACUITY: 1 day PAIN SCALE: 0/10 LOCATION: Bilateral head TECHNIQUE: Multiple contiguous axial images were obtained of the head. Using automated exposure control and adjustment of the mA and/or kV according to patient size, radiation dose was kept as low as reasonably achievable to obtain optimal diagnostic quality images. DICOM format image data is av ailable electronically for review and comparison. FINDINGS: CEREBRUM: The ventricles are normal for age. No evidence of midline shift, mass lesion, hemorrha ge or acute infarction. No extra-axial fluid collections are seen. POSTERIOR FOSSA: The cerebellum and brainstem are intact. The 4th ventricle is midline. The cer ebellopontine angle is unremarkable. EXTRACRANIAL: The visualized portion of the orbits is intact. SKULL: The calvaria is intact. No evidence of skull fracture. CONCLUSION: Negative noncontrast axial head CT. Juan Francisco Castro MD FACR on August 30, 2017 at 14:53 Board Certified Radiologist. This report was verified electronically.
--- NOTE | 2017-08-30 15:05 | HHI.CCPN ---
Subjective Remarks/Hospital Course 08/29: 72-year-old man who was in his usual state of health until earlier today around 11:30 developed sudden onset of left-sided weakness in both the left leg and left arm with slurred speech. He presented initially to emergency department at [facility]. His blood pressure was elevated 204/95. After correction of his blood pressure he received infusion of alteplase and was transferred to [facility]. 08/30: Resting in bed. Left-sided neglect versus however has good power. Speech appropriate. Following commands. Objective Vital Signs Date Time Temp Pulse Resp B/P (MAP) Pulse Ox O2 Delivery O2 Flow Rate FiO2 08/30/17 07:35 98 Nasal Cannula 3.00 08/30/17 06:00 81 08/30/17 04:00 99.0 22 136/67 (90) Intake and Output 08/30/17 08/30/17 08/30/17 07:59 15:59 23:59 Intake Total 0 ml Output Total 1200 ml Balance -1200 ml Result Diagram: 08/29/17 1300 08/29/17 1300 Imaging Last [address] 08/29/17 1632 Signed Impressions: Service Date/Time: Tuesday, August 29, 2017 16:38 - CONCLUSION: 1. No evidence of acute intracranial pathology. No masses are identified. Haseeb Nesbitt MD Neck CTA 08/29/17 0000 Signed Impressions: Service Date/Time: Tuesday, August 29, 2017 14:22 - CONCLUSION: 1. No evidence of hemodynamic significant lesion. There is 10-20%% on the right and 20-30%% on the left. Haseeb Nesbitt MD Head CTA 08/29/17 0000 Signed Impressions: Service Date/Time: Tuesday, August 29, 2017 14:22 - CONCLUSION: 1. Unremarkable CT angiography of the brain. Haseeb Nesbitt MD Head CT 08/29/17 0000 Signed Impressions: Service Date/Time: Tuesday, August 29, 2017 12:55 - CONCLUSION: 1. No evidence of acute intracranial pathology. No masses are identified. Haseeb Nesbitt MD Objective Remarks GENERAL: Well-nourished, well-developed patient. Somewhat anxious SKIN: Warm and dry. HEAD: Normocephalic. EYES: No scleral icterus. No injection or drainage. NECK: Supple, trachea midline. No JVD or lymphadenopathy. CARDIOVASCULAR: Regular rate and rhythm without murmurs, gallops, or rubs. RESPIRATORY: Breath sounds equal bilaterally. No accessory muscle use. GASTROINTESTINAL: Abdomen soft, non-tender, nondistended. MUSCULOSKELETAL: No cyanosis, or edema. BACK: Nontender without obvious deformity. NEURO EXAM: GCS: M 6V5 E4 Mental Status: The patient is alert and oriented to person, place, and time with normal speech. Cranial Nerves: Pupils are round, reactive to light. Extraocular movements are intact without ptosis. Hearing is normal bilaterally. Voice is normal. Tongue protrudes midline and moves symmetrically. Reflexes: Biceps, patellar, and Achilles are 2/4 bilaterally. No clonus. Sensation: Sensation is intact bilaterally to pain and light touch. Two-point discrimination is intact. Motor: Good muscle tone. Strength is 5/5 bilaterally. Cerebellar: Vcuafx-tm-yhov and xlvl-ut-ofxy test normal bilaterally. A/P Assessment and Plan Acute CVA - CTA head and neck negative - Status post TPA infusion - Blood pressure control with the goal SBP less than 180 - Further imaging in management per neurologist - PT and OT eval and treat as tolerated Hypertension - Cardene drip - SBP goal less than 180 - Start Norvasc by mouth - Vasotec and hydralazine when necessary Hypothyroidism - Synthroid 25 g by mouth daily DVT GI prophylaxis - Teds SCDs - No pharmacological DVT prophylaxis 24 hours post TPA administration - Omeprazole Enoc Mckeon MD Aug 30, 2017 15:05
[2017-08-30] MEDS ORDERED: LORazepam 2 MG TAB PO PRN (15:15)
[2017-08-30] MEDS ORDERED: FLUMAZENIL 0.5 MG/5 ML VIAL IV PUSH PRN (15:15)
[2017-08-30] MEDS: LORazepam 2 MG/ML VIAL IV PUSH PRN ×7 (16:37→23:36)
--- NOTE | 2017-08-30 18:59 | EKG ---
Date Performed: 08/29/2017 Time Performed: 15:04:31 PTAGE: 72 years EKG: Sinus rhythm WITH FIRST DEGREE AV BLOCK ABNORMAL ECG PREVIOUS TRACING : 12/08/2012 14.58 Compared to prior tracing no significant change DOCTOR: Delores Mcgregor Interpretating Date/Time 08/30/2017 18:58:54
[2017-08-30] MEDS: HALOPERIDOL LACTATE 5 MG/ML AMP IM PRN ×3 (19:28→23:37)
--- NOTE | 2017-08-30 20:04 | HHI.PR ---
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 small infarct in left thalamus suggests possibility of cardioembolic stroke with emboli to both sides of brain. Plan start aspirin 325 mg daily and statin continue to monitor cardiac telemetry to r/o afib If work up negative, recommend intermediate card tender threat monitoring analyst as outpatient to r/o afib. Diagnosis/Plan: Subjective Subjective Comments Pt developed some focal jerking activity of left arm--? focal sz, so I added cindy. He has had no recurrence of that. Moving left arm normally. Active Medications Current Medications Medications (Trade) Dose Ordered Sig/Nestor Route Start Time Stop Time Status Last Admin Sodium Chloride 1,000 ml @ 84 mls/hr [id number] IV 08/29/17 16:41 08/30/17 16:31 (NS Flush) 2 ml UNSCH PRN IV FLUSH 08/29/17 16:45 (NS Flush) 2 ml BID IV FLUSH 08/29/17 21:00 08/30/17 08:37 (Tylenol) 650 mg Q6H PRN PO 08/29/17 16:45 ([place] 5-325 Mg) 1 tab Q4H PRN PO 08/29/17 16:45 (Morphine Inj) 2 mg Q2H PRN IV PUSH 08/29/17 16:45 (Pepcid Inj) 20 mg Q12HR IV PUSH 08/29/17 21:00 08/30/17 08:37 (Tears Naturale Opth Soln) 1 drop TID EACH EYE 08/29/17 18:00 (Zofran Inj) 4 mg Q6H PRN IV PUSH 08/29/17 16:45 (Albuterol Neb) 2.5 mg Q2HR NEB PRN INH 08/29/17 16:45 Miscellaneous Information 1 Q361D XX 08/29/17 16:45 (Chlorhexidine 2% Cloth) 3 pack Taper DAILY@04 TOP 08/30/17 04:00 08/26/18 03:59 (Chlorhexidine 2% Cloth) 3 pack UNSCH PRN TOP 08/29/17 16:45 (Livier-Colace) 1 tab BID PO 08/29/17 21:00 (Milk Of Magnesia Liq) 30 ml Q12H PRN PO 08/29/17 16:45 (Senokot) 17.2 mg Q12H PRN PO 08/29/17 16:45 (Dulcolax Supp) 10 mg DAILY PRN RECTAL 08/29/17 16:45 (Lactulose Liq) 30 ml DAILY PRN PO 08/29/17 16:45 Nicardipine HCl 25 mg/Sodium Chloride 250 ml @ 50 mls/hr TITRATE PRN IV 08/29/17 16:45 (Trandate Inj) 10 mg Q1HR PRN IV PUSH 08/29/17 16:45 (Vasotec Inj) 2.5 mg Q6H PRN IV PUSH 08/29/17 16:45 (Pravachol) 40 mg HS PO 08/29/17 21:00 (NovoLOG SUPPLEMENTAL SCALE) 1 ACHS SQ 08/29/17 17:00 (D50w (Vial) Inj) 50 ml UNSCH PRN IV PUSH 08/29/17 16:45 (Glucagon Inj) 1 mg UNSCH PRN OTHER 08/29/17 16:45 (Protonix) 40 mg DAILY PO 08/30/17 09:00 Levetriacetam 100 ml @ 400 mls/hr Q8H IV 08/30/17 00:00 08/30/17 16:37 (Ativan Inj) 1 mg Q4H PRN IV 08/29/17 23:00 08/30/17 12:51 (Folate) 1 mg DAILY PO 08/31/17 09:00 09/05/17 08:59 (Vitamin B1) 100 mg DAILY PO 08/31/17 09:00 (Theragran M Tab) 1 tab DAILY PO 08/31/17 09:00 09/05/17 08:59 (Romazicon Inj) 0.2 mg Q1M PRN IV PUSH 08/30/17 15:15 (Ativan) 1 mg Q4H PRN PO 08/30/17 15:15 (Ativan Inj) 1 mg Q4H PRN IV PUSH 08/30/17 15:15 (Ativan) 2 mg Q2H PRN PO 08/30/17 15:15 (Ativan Inj) 2 mg Q2H PRN IV PUSH 08/30/17 15:15 (Ativan Inj) 2 mg Q1H PRN IV PUSH 08/30/17 15:15 08/30/17 18:00 (Ativan Inj) 2 mg Q15M PRN IV PUSH 08/30/17 15:15 08/30/17 19:15 (Haldol Inj) 2 mg Q15M PRN IM 08/30/17 15:15 08/30/17 19:28 Allergies Allergies Coded Allergies No Known Allergies (Unverified Allergy, Unknown, 08/29/17) Exam I&O / VS 08/30/17 08/30/17 08/31/17 15:00 23:00 07:00 Intake Total 3640 ml Output Total 3300 ml Balance 340 ml Intake Oral 520 ml IV Total 3120 ml Output Urine Total 3300 ml Vital Signs Date Time Temp Pulse Resp B/P (MAP) Pulse Ox O2 Delivery O2 Flow Rate FiO2 08/30/17 19:23 95 Nasal Cannula 2.00 08/30/17 18:00 87 08/30/17 16:00 81 08/30/17 16:00 76 17 149/76 (100) 97 08/30/17 14:00 90 08/30/17 12:00 100 34 160/77 (104) 95 08/30/17 12:00 100 08/30/17 10:00 80 08/30/17 08:00 69 08/30/17 08:00 69 18 152/72 (98) 96 08/30/17 07:35 98 Nasal Cannula 3.00 08/30/17 07:00 96 Nasal Cannula 2.00 08/30/17 06:00 81 08/30/17 04:00 99.0 77 22 136/67 (90) 96 08/30/17 04:00 75 08/30/17 02:00 87 08/30/17 00:00 80 08/30/17 00:00 99.2 80 18 146/69 (94) 96 08/29/17 22:00 80 08/29/17 20:44 100 Nasal Cannula 2.00 Exam Comments lethargic but arousable speech normal . follow commands Cn intact MOTOR--5/5 BUE and BLE, normal tone. Objective Radiology Results CT brain 24 hr post TPA normal with no hemorrhage MRI brain--increase signal left thalamus Micro and Labs Laboratory Tests Test 08/29/17 20:45 Nasal Screen MRSA (PCR) MRSA NOT DETECTED Angel Cordero MD PhD Aug 30, 2017 20:04
[2017-08-30] MEDS: ASPIRIN EC 325 MG TABEC PO SCH ×2 (20:15→20:21)
[2017-08-30] MEDS: ATORVASTATIN 20 MG TAB PO ONE ×2 (20:15→20:19)
[2017-08-30] MEDS: PRAVASTATIN SOD 40 MG TAB PO SCH ×2 (20:16→21:00)
[2017-08-30] MEDS: LABETALOL HCL 100 MG/20 ML VIAL IV PUSH PRN (21:51)
[2017-08-31] VITALS (14 sets, daily range): BP systolic 95–189; BP diastolic 65–86; PULSE 54–84; RESP 15–34; TEMP 96.6–98.9; O2SAT 95–100
[2017-08-31] MEDS: LORazepam 2 MG/ML VIAL IV PUSH PRN ×12 (00:56→23:39)
[2017-08-31] MEDS: HALOPERIDOL LACTATE 5 MG/ML AMP IM PRN ×5 (01:03→23:35)
[2017-08-31] MEDS: LABETALOL HCL 100 MG/20 ML VIAL IV PUSH PRN (02:00)
[2017-08-31] MEDS: CHLORHEXIDINE GLUCONATE 2 % 1 PACK (2 CLOTHS) TOP SCH (04:00)
[2017-08-31] MEDS: SODIUM CHLOR 0.9% 1000 ML INJ 1,000 ML IV SCH ×2 (04:55→16:21)
[2017-08-31 05:06] LABS: AUTOMATED NEUTROPHIL # 6.8 TH/MM3 (1.8-7.7); BASOPHIL % 0.5 % (0.0-2.0); EOSINOPHIL # 0.1 TH/MM3 (0-0.4); EOSINOPHIL % 1.2 % (0.0-4.0); HEMATOCRIT 41.3 % (39.0-51.0); HEMOGLOBIN 14.3 GM/DL (13.0-17.0); LYMPHOCYTE # 0.8 TH/MM3 (1.0-4.8); MEAN CELL VOLUME 98.6 FL (80.0-100.0); MEAN CORPUSCULAR HEMOGLOBIN 34.2 PG (27.0-34.0); MEAN CORPUSCULAR HGB CONC 34.7 % (32.0-36.0); MEAN PLATELET VOLUME 7.6 FL (7.0-11.0); MONO % 8.8 % (0.0-8.0); MONOCYTE # 0.8 TH/MM3 (0-0.9); NEUT % 80.5 % (16.0-70.0); PLATELET COUNT 177 TH/MM3 (150-450); RED BLOOD COUNT 4.19 MIL/MM3 (4.50-5.90); RED CELL DISTRIBUTION WIDTH 12.9 % (11.6-17.2); WHITE BLOOD COUNT 8.5 TH/MM3 (4.0-11.0)
[2017-08-31 05:11] LABS: ALBUMIN 3.8 GM/DL (3.4-5.0); AST (GOT) 36 U/L (15-37); BICARBONATE 22.9 MEQ/L (21.0-32.0); BLOOD UREA NITROGEN 13 MG/DL (7-18); CALCIUM 8.8 MG/DL (8.5-10.1); CHLORIDE 102 MEQ/L (98-107); CREATININE 1.14 MG/DL (0.60-1.30); GLOMERULAR FILTRATION RATE 63 ML/MIN (>89); GLUCOSE,RANDOM 129 MG/DL (74-106); SODIUM (NA) 136 MEQ/L (136-145)
[2017-08-31 05:12] LABS: ALT (GPT) 29 U/L (12-78); CHOLESTEROL 228 MG/DL (120-200); INTERNATIONAL NORMALIZED RATIO 1.1 RATIO; PROTHROMBIN TIME - PATIENT 10.8 SEC (9.8-11.6); TRIGLYCERIDES 76 MG/DL (42-150)
[2017-08-31 05:15] LABS: ALKALINE PHOSPHATASE 70 U/L (45-117); CHOLESTEROL/ HDL RATIO 2.24 RATIO; HDL CHOLESTEROL 101.4 MG/DL (40.0-60.0); LDL CHOLESTEROL 111 MG/DL (0-99); PHOSPHORUS 2.3 MG/DL (2.5-4.9); TOTAL BILIRUBIN ADULT 1.1 MG/DL (0.2-1.0); TOTAL PROTEIN 7.3 GM/DL (6.4-8.2)
[2017-08-31] MEDS: INSULIN ASPART SUPPLEMENTAL SCALE SQ SCH ×4 (08:00→21:00)
[2017-08-31] MEDS: PANTOPRAZOLE SOD 40 MG DELAYED RELEASE TAB PO SCH (08:21)
[2017-08-31] MEDS: MULTIVITAMINS/MINERALS THERAPEUTIC TAB PO SCH (08:21)
[2017-08-31] MEDS: THIAMINE HCL 100 MG TAB PO SCH (08:21)
[2017-08-31] MEDS: SODIUM CHLORIDE 0.9% FLUSH 10 ML FLUSH IV FLUSH SCH ×2 (08:22→21:13)
[2017-08-31] MEDS: DOCUSATE SODIUM 50 MG/SENNA 8.6 MG TAB PO SCH ×2 (08:22→21:13)
[2017-08-31] MEDS: levETIRAcetam INJ 100 ML IV SCH ×3 (08:22→23:27)
[2017-08-31] MEDS: FOLIC ACID 1 MG TAB PO SCH (08:22)
[2017-08-31] MEDS: FAMOTIDINE 20 MG/2 ML VIAL IV PUSH SCH ×2 (08:22→21:14)
[2017-08-31] MEDS: ASPIRIN EC 325 MG TABEC PO SCH (08:22)
[2017-08-31] MEDS: ARTIFICIAL TEARS OPTH SOLN 15 ML BTL EACH EYE SCH ×4 (09:00→18:00)
[2017-08-31] MEDS ORDERED: LORazepam 2 MG/ML VIAL IV ONE (12:00)
--- NOTE | 2017-08-31 14:43 | HHI.CCPN ---
Subjective Remarks/Hospital Course 08/29: 72-year-old man who was in his usual state of health until earlier today around 11:30 developed sudden onset of left-sided weakness in both the left leg and left arm with slurred speech. He presented initially to emergency department at [facility]. His blood pressure was elevated 204/95. After correction of his blood pressure he received infusion of alteplase and was transferred to [facility]. 08/30: Resting in bed. Left-sided neglect versus however has good power. Speech appropriate. Following commands. 08/31: Appears anxious, tremulous. Awake and alert. Knows he is in the hospital. Received multiple doses of Ativan for alcohol withdrawal. Objective Vital Signs Date Time Temp Pulse Resp B/P (MAP) Pulse Ox O2 Delivery O2 Flow Rate FiO2 08/31/17 07:41 99 Nasal Cannula 3.00 08/31/17 06:00 58 08/31/17 04:00 96.6 24 95/79 (84) Intake and Output 08/31/17 08/31/17 09/01/17 08:00 16:00 00:00 Intake Total 184 ml Output Total 1000 ml Balance -816 ml Result Diagram: 08/31/17 0433 08/31/17 0433 Imaging Last [address] 08/29/17 1632 Signed Impressions: Service Date/Time: Tuesday, August 29, 2017 16:38 - CONCLUSION: 1. No evidence of acute intracranial pathology. No masses are identified. Haseeb Nesbitt MD Neck CTA 08/29/17 0000 Signed Impressions: Service Date/Time: Tuesday, August 29, 2017 14:22 - CONCLUSION: 1. No evidence of hemodynamic significant lesion. There is 10-20%% on the right and 20-30%% on the left. Haseeb Nesbitt MD Head CTA 08/29/17 0000 Signed Impressions: Service Date/Time: Tuesday, August 29, 2017 14:22 - CONCLUSION: 1. Unremarkable CT angiography of the brain. Haseeb Nesbitt MD Head CT 08/29/17 0000 Signed Impressions: Service Date/Time: Tuesday, August 29, 2017 12:55 - CONCLUSION: 1. No evidence of acute intracranial pathology. No masses are identified. Haseeb Nesbitt MD Objective Remarks GENERAL: Well-nourished, well-developed patient. Somewhat anxious SKIN: Warm and dry. HEAD: Normocephalic. EYES: No scleral icterus. No injection or drainage. NECK: Supple, trachea midline. No JVD or lymphadenopathy. CARDIOVASCULAR: Regular rate and rhythm without murmurs, gallops, or rubs. RESPIRATORY: Breath sounds equal bilaterally. No accessory muscle use. GASTROINTESTINAL: Abdomen soft, non-tender, nondistended. MUSCULOSKELETAL: No cyanosis, or edema. BACK: Nontender without obvious deformity. NEURO EXAM: GCS: M 6V5 E4 Mental Status: The patient is alert and oriented to person, place, and time with normal speech. Cranial Nerves: Pupils are round, reactive to light. Extraocular movements are intact without ptosis. Hearing is normal bilaterally. Voice is normal. Tongue protrudes midline and moves symmetrically. Reflexes: Biceps, patellar, and Achilles are 2/4 bilaterally. No clonus. Sensation: Sensation is intact bilaterally to pain and light touch. Two-point discrimination is intact. Motor: Good muscle tone. Strength is 5/5 bilaterally. Cerebellar: [id number] and [id number]-[id number] test normal bilaterally. A/P Assessment and Plan Acute CVA - CTA head and neck negative - Status post TPA infusion - Blood pressure control with the goal SBP less than 180 - Further imaging/ management per neurologist - On alcohol withdrawal protocol with Ativan when necessary. Adding Librium 25 mg 3 times a day for alcohol withdrawal. - PT and OT eval and treat as tolerated Alcohol withdrawal -Follows CIWA protocol, Ativan/haldol/Librium ordered. MVI/ folate/ Thiamine daily Hypertension - Cardene drip as needed - SBP goal less than 180 - Started Norvasc by mouth - Vasotec and hydralazine when necessary Hypothyroidism - Synthroid 25 g by mouth daily DVT GI prophylaxis - Teds SCDs - No pharmacological DVT prophylaxis 24 hours post TPA administration - Omeprazole Enoc Mckeon MD Aug 31, 2017 14:43
[2017-08-31] MEDS ORDERED: chlordiazePOXIDE 25 MG CAP PO PRN (14:45)
[2017-08-31 15:45] LABS: HEMOGLOBIN A1C 5.5 % (4.3-6.0)
[2017-08-31] MEDS: LORazepam 2 MG/ML VIAL IV PUSH SCH ×2 (15:59→21:13)
[2017-08-31] MEDS: PRAVASTATIN SOD 40 MG TAB PO SCH (21:14)
--- NOTE | 2017-08-31 22:11 | HHI.PR ---
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 small infarct in left thalamus suggests possibility of cardioembolic stroke with emboli to both sides of brain. Plan start aspirin 325 mg daily and statin continue to monitor cardiac telemetry to r/o afib If work up negative, recommend terminal clerk operations and maintenance specialist as outpatient to r/o afib. Diagnosis/Plan: Subjective Subjective Comments No acute events reported Active Medications Current Medications Medications (Trade) Dose Ordered Sig/Nestor Route Start Time Stop Time Status Last Admin Sodium Chloride 1,000 ml @ 84 mls/hr [id number] IV 08/29/17 16:41 08/31/17 16:21 (NS Flush) 2 ml UNSCH PRN IV FLUSH 08/29/17 16:45 (NS Flush) 2 ml BID IV FLUSH 08/29/17 21:00 08/31/17 21:13 (Tylenol) 650 mg Q6H PRN PO 08/29/17 16:45 ([place] 5-325 Mg) 1 tab Q4H PRN PO 08/29/17 16:45 (Morphine Inj) 2 mg Q2H PRN IV PUSH 08/29/17 16:45 (Pepcid Inj) 20 mg Q12HR IV PUSH 08/29/17 21:00 08/31/17 21:14 (Tears Naturale Opth Soln) 1 drop TID EACH EYE 08/29/17 18:00 08/31/17 18:00 (Zofran Inj) 4 mg Q6H PRN IV PUSH 08/29/17 16:45 (Albuterol Neb) 2.5 mg Q2HR NEB PRN INH 08/29/17 16:45 Miscellaneous Information 1 Q361D XX 08/29/17 16:45 (Chlorhexidine 2% Cloth) 3 pack Taper DAILY@04 TOP 08/30/17 04:00 08/26/18 03:59 (Chlorhexidine 2% Cloth) 3 pack UNSCH PRN TOP 08/29/17 16:45 (Livier-Colace) 1 tab BID PO 08/29/17 21:00 08/31/17 21:13 (Milk Of Magnesia Liq) 30 ml Q12H PRN PO 08/29/17 16:45 (Senokot) 17.2 mg Q12H PRN PO 08/29/17 16:45 (Dulcolax Supp) 10 mg DAILY PRN RECTAL 08/29/17 16:45 (Lactulose Liq) 30 ml DAILY PRN PO 08/29/17 16:45 Nicardipine HCl 25 mg/Sodium Chloride 250 ml @ 50 mls/hr TITRATE PRN IV 08/29/17 16:45 (Trandate Inj) 10 mg Q1HR PRN IV PUSH 08/29/17 16:45 08/31/17 02:00 (Vasotec Inj) 2.5 mg Q6H PRN IV PUSH 08/29/17 16:45 (Pravachol) 40 mg HS PO 08/29/17 21:00 08/31/17 21:14 (NovoLOG SUPPLEMENTAL SCALE) 1 ACHS SQ 08/29/17 17:00 (D50w (Vial) Inj) 50 ml UNSCH PRN IV PUSH 08/29/17 16:45 (Glucagon Inj) 1 mg UNSCH PRN OTHER 08/29/17 16:45 (Protonix) 40 mg DAILY PO 08/30/17 09:00 08/31/17 08:21 Levetriacetam 100 ml @ 400 mls/hr Q8H IV 08/30/17 00:00 08/31/17 15:59 (Ativan Inj) 1 mg Q4H PRN IV 08/29/17 23:00 08/30/17 12:51 (Folate) 1 mg DAILY PO 08/31/17 09:00 09/05/17 08:59 08/31/17 08:22 (Vitamin B1) 100 mg DAILY PO 08/31/17 09:00 08/31/17 08:21 (Theragran M Tab) 1 tab DAILY PO 08/31/17 09:00 09/05/17 08:59 08/31/17 08:21 (Romazicon Inj) 0.2 mg Q1M PRN IV PUSH 08/30/17 15:15 (Ativan) 1 mg Q4H PRN PO 08/30/17 15:15 (Ativan Inj) 1 mg Q4H PRN IV PUSH 08/30/17 15:15 (Ativan) 2 mg Q2H PRN PO 08/30/17 15:15 (Ativan Inj) 2 mg Q2H PRN IV PUSH 08/30/17 15:15 08/31/17 21:53 (Ativan Inj) 2 mg Q1H PRN IV PUSH 08/30/17 15:15 08/31/17 08:12 (Ativan Inj) 2 mg Q15M PRN IV PUSH 08/30/17 15:15 08/31/17 16:09 (Haldol Inj) 2 mg Q15M PRN IM 08/30/17 15:15 08/31/17 15:59 (Ecotrin Ec) 325 mg DAILY PO 08/30/17 20:15 08/31/17 08:22 (Librium) 25 mg TID PRN PO 08/31/17 14:45 (Ativan Inj) 2 mg Q6H IV PUSH 08/31/17 14:45 09/01/17 20:00 08/31/17 21:13 Allergies Allergies Coded Allergies No Known Allergies (Unverified Allergy, Unknown, 08/29/17) Exam I&O / VS 08/31/17 08/31/17 09/01/17 15:00 23:00 07:00 Output Total 1000 ml Balance -1000 ml Output Urine Total 1000 ml # Voids 2 Vital Signs Date Time Temp Pulse Resp B/P (MAP) Pulse Ox O2 Delivery O2 Flow Rate FiO2 08/31/17 20:08 100 Nasal Cannula 2.00 08/31/17 18:00 62 08/31/17 16:00 75 08/31/17 16:00 98.9 76 21 189/79 (115) 98 08/31/17 14:00 57 08/31/17 12:00 84 08/31/17 12:00 98.7 57 34 178/86 (116) 95 08/31/17 10:00 68 08/31/17 08:00 98.1 54 15 164/76 (105) 100 08/31/17 08:00 54 08/31/17 07:41 99 Nasal Cannula 3.00 08/31/17 07:00 95 Nasal Cannula 2.00 08/31/17 06:00 58 08/31/17 04:00 66 08/31/17 04:00 96.6 66 24 95/79 (84) 95 08/31/17 02:00 72 08/31/17 00:00 56 08/31/17 00:00 98.3 56 15 142/65 (90) 97 Exam Comments lethargic but arousable speech normal . follow commands Cn intact MOTOR--5/5 BUE and BLE, normal tone. Objective Micro and Labs Laboratory Tests Test 08/31/17 04:22 08/31/17 04:33 Lactic Acid Level 2.1 White Blood Count 8.5 Red Blood Count 4.19 Hemoglobin 14.3 Hematocrit 41.3 Mean Corpuscular Volume 98.6 Mean Corpuscular Hemoglobin 34.2 Mean Corpuscular Hemoglobin Concent 34.7 Red Cell Distribution Width 12.9 Platelet Count 177 Mean Platelet Volume 7.6 Neutrophils (%) (Auto) 80.5 Lymphocytes (%) (Auto) 9.0 Monocytes (%) (Auto) 8.8 Eosinophils (%) (Auto) 1.2 Basophils (%) (Auto) 0.5 Neutrophils # (Auto) 6.8 Lymphocytes # (Auto) 0.8 Monocytes # (Auto) 0.8 Eosinophils # (Auto) 0.1 Basophils # (Auto) 0.0 CBC Comment DIFF FINAL Differential Comment Prothrombin Time 10.8 Prothromb Time International Ratio 1.1 Activated Partial Thromboplast Time 23.7 Blood Urea Nitrogen 13 Creatinine 1.14 Random Glucose 129 Total Protein 7.3 Albumin 3.8 Calcium Level 8.8 Phosphorus Level 2.3 Magnesium Level 2.0 Alkaline Phosphatase 70 Aspartate Amino Transf (AST/SGOT) 36 Alanine Aminotransferase (ALT/SGPT) 29 Total Bilirubin 1.1 Sodium Level 136 Potassium Level 3.9 Chloride Level 102 Carbon Dioxide Level 22.9 Anion Gap 11 Estimat Glomerular Filtration Rate 63 Hemoglobin A1c 5.5 Triglycerides Level 76 Cholesterol Level 228 LDL Cholesterol 111 HDL Cholesterol 101.4 Cholesterol/HDL Ratio 2.24 Angel Cordero MD PhD Aug 31, 2017 22:11
[2017-09-01] VITALS (14 sets, daily range): BP systolic 123–179; BP diastolic 75–121; PULSE 60–82; RESP 16–24; TEMP 98.2–98.7; O2SAT 93–100
[2017-09-01] MEDS: LORazepam 2 MG/ML VIAL IV PUSH PRN ×9 (00:42→22:55)
[2017-09-01] MEDS: LORazepam 2 MG/ML VIAL IV PUSH SCH ×3 (02:26→13:52)
[2017-09-01] MEDS: CHLORHEXIDINE GLUCONATE 2 % 1 PACK (2 CLOTHS) TOP SCH (04:00)
[2017-09-01 06:55] LABS: AUTOMATED NEUTROPHIL # 4.9 TH/MM3 (1.8-7.7); BASOPHIL % 0.7 % (0.0-2.0); EOSINOPHIL # 0.1 TH/MM3 (0-0.4); EOSINOPHIL % 2.2 % (0.0-4.0); HEMATOCRIT 42.6 % (39.0-51.0); HEMOGLOBIN 14.6 GM/DL (13.0-17.0); LYMPH % 11.2 % (9.0-44.0); LYMPHOCYTE # 0.7 TH/MM3 (1.0-4.8); MEAN CELL VOLUME 98.5 FL (80.0-100.0); MEAN CORPUSCULAR HEMOGLOBIN 33.8 PG (27.0-34.0); MEAN CORPUSCULAR HGB CONC 34.4 % (32.0-36.0); MONO % 12.3 % (0.0-8.0); MONOCYTE # 0.8 TH/MM3 (0-0.9); NEUT % 73.6 % (16.0-70.0); PLATELET COUNT 151 TH/MM3 (150-450); RED BLOOD COUNT 4.32 MIL/MM3 (4.50-5.90); WHITE BLOOD COUNT 6.6 TH/MM3 (4.0-11.0)
[2017-09-01 07:05] LABS: ALKALINE PHOSPHATASE 67 U/L (45-117); ALT (GPT) 31 U/L (12-78); TOTAL BILIRUBIN ADULT 0.8 MG/DL (0.2-1.0); TOTAL PROTEIN 6.5 GM/DL (6.4-8.2)
[2017-09-01 07:07] LABS: ALBUMIN 3.3 GM/DL (3.4-5.0); AST (GOT) 46 U/L (15-37); BICARBONATE 25.7 MEQ/L (21.0-32.0); BLOOD UREA NITROGEN 11 MG/DL (7-18); CALCIUM 8.2 MG/DL (8.5-10.1); CHLORIDE 108 MEQ/L (98-107); CREATININE 0.92 MG/DL (0.60-1.30); GLOMERULAR FILTRATION RATE 81 ML/MIN (>89); GLUCOSE,RANDOM 73 MG/DL (74-106); SODIUM (NA) 142 MEQ/L (136-145)
[2017-09-01] MEDS: INSULIN ASPART SUPPLEMENTAL SCALE SQ SCH ×4 (08:00→21:00)
[2017-09-01] MEDS: SODIUM CHLOR 0.9% 1000 ML INJ 1,000 ML IV SCH ×2 (08:07→20:35)
[2017-09-01] MEDS: THIAMINE HCL 100 MG TAB PO SCH (08:09)
[2017-09-01] MEDS: FAMOTIDINE 20 MG/2 ML VIAL IV PUSH SCH ×2 (08:09→20:35)
[2017-09-01] MEDS: FOLIC ACID 1 MG TAB PO SCH (08:09)
[2017-09-01] MEDS: ASPIRIN EC 325 MG TABEC PO SCH (08:09)
[2017-09-01] MEDS: SODIUM CHLORIDE 0.9% FLUSH 10 ML FLUSH IV FLUSH SCH ×2 (08:09→20:35)
[2017-09-01] MEDS: PANTOPRAZOLE SOD 40 MG DELAYED RELEASE TAB PO SCH (08:09)
[2017-09-01] MEDS: MULTIVITAMINS/MINERALS THERAPEUTIC TAB PO SCH (08:09)
[2017-09-01] MEDS: DOCUSATE SODIUM 50 MG/SENNA 8.6 MG TAB PO SCH ×2 (08:10→20:35)
[2017-09-01] MEDS: levETIRAcetam INJ 100 ML IV SCH ×2 (08:10→17:07)
[2017-09-01] MEDS: ARTIFICIAL TEARS OPTH SOLN 15 ML BTL EACH EYE SCH ×3 (08:35→17:08)
--- NOTE | 2017-09-01 14:05 | HHI.CCPN ---
Subjective Remarks/Hospital Course 08/29: 72-year-old man who was in his usual state of health until earlier today around 11:30 developed sudden onset of left-sided weakness in both the left leg and left arm with slurred speech. He presented initially to emergency department at [facility]. His blood pressure was elevated 204/95. After correction of his blood pressure he received infusion of alteplase and was transferred to [facility]. 08/30: Resting in bed. Left-sided neglect versus however has good power. Speech appropriate. Following commands. 08/31: Appears anxious, tremulous. Awake and alert. Knows he is in the hospital. Received multiple doses of Ativan for alcohol withdrawal. 09/01: Received multiple doses of Ativan overnight. + She still has some tremors. Having hallucinations off and on. Moves all 4 extremities. Objective Vital Signs Date Time Temp Pulse Resp B/P (MAP) Pulse Ox O2 Delivery O2 Flow Rate FiO2 09/01/17 10:00 64 09/01/17 09:44 95 21 09/01/17 08:00 98.7 20 161/121 (134) 09/01/17 07:00 Room Air 08/31/17 20:08 2.00 Intake and Output 09/01/17 09/01/17 09/02/17 08:00 16:00 00:00 Intake Total 120 ml Output Total 1200 ml Balance -1080 ml Result Diagram: 09/01/17 0504 09/01/17 0504 Imaging Last [address] 08/29/17 1632 Signed Impressions: Service Date/Time: Tuesday, August 29, 2017 16:38 - CONCLUSION: 1. No evidence of acute intracranial pathology. No masses are identified. Haseeb Nesbitt MD Neck CTA 08/29/17 0000 Signed Impressions: Service Date/Time: Tuesday, August 29, 2017 14:22 - CONCLUSION: 1. No evidence of hemodynamic significant lesion. There is 10-20%% on the right and 20-30%% on the left. Haseeb Nesbitt MD Head CTA 08/29/17 0000 Signed Impressions: Service Date/Time: Tuesday, August 29, 2017 14:22 - CONCLUSION: 1. Unremarkable CT angiography of the brain. Haseeb Nesbitt MD Head CT 08/29/17 0000 Signed Impressions: Service Date/Time: Tuesday, August 29, 2017 12:55 - CONCLUSION: 1. No evidence of acute intracranial pathology. No masses are identified. Haseeb Nesbitt MD Objective Remarks GENERAL: Well-nourished, well-developed patient. Somewhat anxious SKIN: Warm and dry. HEAD: Normocephalic. EYES: No scleral icterus. No injection or drainage. NECK: Supple, trachea midline. No JVD or lymphadenopathy. CARDIOVASCULAR: Regular rate and rhythm without murmurs, gallops, or rubs. RESPIRATORY: Breath sounds equal bilaterally. No accessory muscle use. GASTROINTESTINAL: Abdomen soft, non-tender, nondistended. MUSCULOSKELETAL: No cyanosis, or edema. BACK: Nontender without obvious deformity. NEURO EXAM: Mental Status: The patient is awake and alert, disoriented. Cranial Nerves: Pupils are round, reactive to light. Extraocular movements are intact without ptosis. Hearing is normal bilaterally. Voice is normal. Tongue protrudes midline and moves symmetrically. Reflexes: Biceps, patellar, and Achilles are 2/4 bilaterally. No clonus. Motor: Good muscle tone. Strength is 5/5 bilaterally. A/P Assessment and Plan Acute CVA - CTA head and neck negative - Status post TPA infusion - Blood pressure control with the goal SBP less than 180 - Further imaging/ management per neurologist - On alcohol withdrawal protocol with Ativan when necessary. Adding Librium 25 mg 3 times a day for alcohol withdrawal. - PT and OT eval and treat as tolerated Alcohol withdrawal -Follows CIWA protocol, Ativan/haldol/Librium ordered. MVI/ folate/ Thiamine daily Hypertension - Cardene drip as needed - SBP goal less than 180 - Started Norvasc by mouth - Vasotec and hydralazine when necessary Hypothyroidism - Synthroid 25 g by mouth daily DVT GI prophylaxis - Teds SCDs - No pharmacological DVT prophylaxis 24 hours post TPA administration - Omeprazole Enoc Mckeon MD Sep 01, 2017 14:05
[2017-09-01] MEDS: PRAVASTATIN SOD 40 MG TAB PO SCH (20:35)
[2017-09-02] VITALS (14 sets, daily range): BP systolic 149–187; BP diastolic 70–86; PULSE 58–83; RESP 19–35; TEMP 97.8–98.5; O2SAT 94–98
[2017-09-02] MEDS: levETIRAcetam INJ 100 ML IV SCH ×3 (00:05→15:22)
[2017-09-02] MEDS: LABETALOL HCL 100 MG/20 ML VIAL IV PUSH PRN ×4 (00:06→13:00)
[2017-09-02] MEDS: LORazepam 2 MG/ML VIAL IV PUSH PRN ×7 (00:34→15:52)
[2017-09-02] MEDS: CHLORHEXIDINE GLUCONATE 2 % 1 PACK (2 CLOTHS) TOP SCH (03:13)
[2017-09-02] MEDS: SODIUM CHLOR 0.9% 1000 ML INJ 1,000 ML IV SCH ×2 (04:06→09:10)
[2017-09-02 06:28] LABS: AUTOMATED NEUTROPHIL # 4.1 TH/MM3 (1.8-7.7); BASOPHIL % 0.7 % (0.0-2.0); EOSINOPHIL # 0.2 TH/MM3 (0-0.4); EOSINOPHIL % 4.1 % (0.0-4.0); HEMATOCRIT 44.2 % (39.0-51.0); HEMOGLOBIN 15.2 GM/DL (13.0-17.0); LYMPH % 11.3 % (9.0-44.0); LYMPHOCYTE # 0.6 TH/MM3 (1.0-4.8); MEAN CELL VOLUME 98.3 FL (80.0-100.0); MEAN CORPUSCULAR HEMOGLOBIN 33.9 PG (27.0-34.0); MEAN CORPUSCULAR HGB CONC 34.5 % (32.0-36.0); MEAN PLATELET VOLUME 7.6 FL (7.0-11.0); MONO % 10.6 % (0.0-8.0); MONOCYTE # 0.6 TH/MM3 (0-0.9); NEUT % 73.3 % (16.0-70.0); PLATELET COUNT 177 TH/MM3 (150-450); RED BLOOD COUNT 4.49 MIL/MM3 (4.50-5.90); RED CELL DISTRIBUTION WIDTH 13.1 % (11.6-17.2); WHITE BLOOD COUNT 5.6 TH/MM3 (4.0-11.0)
[2017-09-02 07:17] LABS: ALBUMIN 3.7 GM/DL (3.4-5.0); ALT (GPT) 37 U/L (12-78); AST (GOT) 43 U/L (15-37); BICARBONATE 27.3 MEQ/L (21.0-32.0); BLOOD UREA NITROGEN 9 MG/DL (7-18); CALCIUM 8.6 MG/DL (8.5-10.1); CHLORIDE 107 MEQ/L (98-107); CREATININE 0.96 MG/DL (0.60-1.30); GLOMERULAR FILTRATION RATE 77 ML/MIN (>89); GLUCOSE,RANDOM 78 MG/DL (74-106); MAGNESIUM 1.9 MG/DL (1.5-2.5); PHOSPHORUS 2.6 MG/DL (2.5-4.9); SODIUM (NA) 141 MEQ/L (136-145)
[2017-09-02 07:19] LABS: ALKALINE PHOSPHATASE 75 U/L (45-117); TOTAL BILIRUBIN ADULT 0.9 MG/DL (0.2-1.0); TOTAL PROTEIN 7.1 GM/DL (6.4-8.2)
[2017-09-02] MEDS: INSULIN ASPART SUPPLEMENTAL SCALE SQ SCH ×2 (08:00→12:00)
[2017-09-02] MEDS: ENALAPRILAT 2.5 MG/2 ML VIAL IV PUSH PRN ×2 (08:15→14:33)
[2017-09-02] MEDS: ARTIFICIAL TEARS OPTH SOLN 15 ML BTL EACH EYE SCH ×3 (09:00→18:00)
[2017-09-02] MEDS: MULTIVITAMINS/MINERALS THERAPEUTIC TAB PO SCH (09:00)
[2017-09-02] MEDS: FAMOTIDINE 20 MG/2 ML VIAL IV PUSH SCH ×2 (09:00→21:19)
[2017-09-02] MEDS: SODIUM CHLORIDE 0.9% FLUSH 10 ML FLUSH IV FLUSH SCH ×2 (09:00→21:19)
[2017-09-02] MEDS: DOCUSATE SODIUM 50 MG/SENNA 8.6 MG TAB PO SCH ×2 (09:00→21:20)
[2017-09-02] MEDS: THIAMINE HCL 100 MG TAB PO SCH (09:59)
[2017-09-02] MEDS: ASPIRIN EC 325 MG TABEC PO SCH (09:59)
[2017-09-02] MEDS: ENALAPRILAT 2.5 MG/2 ML VIAL IV PUSH SCH ×2 (10:00→18:31)
[2017-09-02] MEDS: FOLIC ACID 1 MG TAB PO SCH (10:00)
[2017-09-02] MEDS: PANTOPRAZOLE SOD 40 MG DELAYED RELEASE TAB PO SCH (10:00)
--- NOTE | 2017-09-02 10:05 | HHI.CCPN ---
Subjective Remarks/Hospital Course 08/29: 72-year-old man who was in his usual state of health until earlier today around 11:30 developed sudden onset of left-sided weakness in both the left leg and left arm with slurred speech. He presented initially to emergency department at [facility]. His blood pressure was elevated 204/95. After correction of his blood pressure he received infusion of alteplase and was transferred to [facility]. 08/30: Resting in bed. Left-sided neglect versus however has good power. Speech appropriate. Following commands. 08/31: Appears anxious, tremulous. Awake and alert. Knows he is in the hospital. Received multiple doses of Ativan for alcohol withdrawal. 09/01: Received multiple doses of Ativan overnight. + She still has some tremors. Having hallucinations off and on. Moves all 4 extremities. 09/02: Calm, sleeping. Will reduce ativan coverage for CIWA. Add iv vasotec for better BP control. Objective Vital Signs Date Time Temp Pulse Resp B/P (MAP) Pulse Ox O2 Delivery O2 Flow Rate FiO2 09/02/17 08:00 72 09/02/17 08:00 98.5 21 180/82 (114) 96 09/02/17 07:00 Room Air 09/01/17 20:30 21 08/31/17 20:08 2.00 Intake and Output 09/02/17 09/02/17 09/03/17 08:00 16:00 00:00 Intake Total 50 ml Output Total 2300 ml Balance -2250 ml Result Diagram: 09/02/17 0505 09/02/17 0505 Imaging Last [address] 08/29/17 1632 Signed Impressions: Service Date/Time: Tuesday, August 29, 2017 16:38 - CONCLUSION: 1. No evidence of acute intracranial pathology. No masses are identified. Haseeb Nesbitt MD Neck CTA 08/29/17 0000 Signed Impressions: Service Date/Time: Tuesday, August 29, 2017 14:22 - CONCLUSION: 1. No evidence of hemodynamic significant lesion. There is 10-20%% on the right and 20-30%% on the left. Haseeb Nesbitt MD Head CTA 08/29/17 0000 Signed Impressions: Service Date/Time: Tuesday, August 29, 2017 14:22 - CONCLUSION: 1. Unremarkable CT angiography of the brain. Haseeb Nesbitt MD Head CT 08/29/17 0000 Signed Impressions: Service Date/Time: Tuesday, August 29, 2017 12:55 - CONCLUSION: 1. No evidence of acute intracranial pathology. No masses are identified. Haseeb Nesbitt MD Objective Remarks GENERAL: Well-nourished, well-developed patient. Somewhat anxious SKIN: Warm and dry. HEAD: Normocephalic. EYES: No scleral icterus. No injection or drainage. NECK: Supple, trachea midline. Airway widely patent. CARDIOVASCULAR: Regular rate and rhythm without murmurs, gallops, or rubs. No JVD. RESPIRATORY: Breath sounds equal bilaterally. No accessory muscle use. GASTROINTESTINAL: Abdomen soft, non-tender, nondistended. BS active. MUSCULOSKELETAL: No cyanosis, or edema. Well perfused. NEURO EXAM: Mental Status: Sleeping Cranial Nerves: Pupils are round, reactive to light. Reflexes: Biceps 2/4 bilaterally. No clonus. Motor: Good muscle tone. Strength is 5/5 bilaterally. A/P Assessment and Plan Acute CVA - CTA head and neck negative - Status post TPA infusion - Blood pressure control with the goal SBP less than 180 - Further imaging/ management per neurologist - On alcohol withdrawal protocol with Ativan when necessary. Hold scheduled Librium 25 mg 3 times a day for alcohol withdrawal. - PT and OT eval and treat as tolerated Alcohol withdrawal -Follows CIWA protocol, Ativan/haldol/Librium ordered. MVI/ folate/ Thiamine daily Hypertension - Cardene drip as needed - SBP goal less than 180 - Started Norvasc by mouth - Vasotec and hydralazine when necessary Hypothyroidism - Synthroid 25 g by mouth daily DVT GI prophylaxis - Teds SCDs - No pharmacological DVT prophylaxis 24 hours post TPA administration - Omeprazole Overall impression: Withdrawal symptoms controlled, will reduce scheduled sedation. Lengthy talk with his at the bedside. All questions answered. Luis Miguel Bobo MD Sep 02, 2017 10:05
[2017-09-02] MEDS ORDERED: LORazepam 2 MG/ML VIAL IV PUSH PRN (10:15)
[2017-09-02] MEDS ORDERED: LORazepam 2 MG TAB PO PRN (11:15)
[2017-09-02] MEDS: HALOPERIDOL LACTATE 5 MG/ML AMP IM PRN ×3 (13:46→15:53)
--- NOTE | 2017-09-02 20:23 | HHI.PR ---
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 small infarct in left thalamus suggests possibility of cardioembolic stroke with emboli to both sides of brain. 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 protocol for ETOH withdrawal in place Diagnosis/Plan: Subjective Subjective Comments No acute events reported Has been agitated requiring sedation Active Medications Current Medications Medications (Trade) Dose Ordered Sig/Nestor Route Start Time Stop Time Status Last Admin Sodium Chloride 1,000 ml @ 40 mls/hr Q24H IV 08/29/17 16:41 09/02/17 09:10 (NS Flush) 2 ml UNSCH PRN IV FLUSH 08/29/17 16:45 (NS Flush) 2 ml BID IV FLUSH 08/29/17 21:00 09/02/17 09:00 (Tylenol) 650 mg Q6H PRN PO 08/29/17 16:45 (Mohawk 5-325 Mg) 1 tab Q4H PRN PO 08/29/17 16:45 (Morphine Inj) 2 mg Q2H PRN IV PUSH 08/29/17 16:45 09/02/17 14:33 (Pepcid Inj) 20 mg Q12HR IV PUSH 08/29/17 21:00 09/01/17 20:35 (Tears Naturale Opth Soln) 1 drop TID EACH EYE 08/29/17 18:00 09/02/17 18:00 (Zofran Inj) 4 mg Q6H PRN IV PUSH 08/29/17 16:45 (Albuterol Neb) 2.5 mg Q2HR NEB PRN INH 08/29/17 16:45 Miscellaneous Information 1 Q361D XX 08/29/17 16:45 (Chlorhexidine 2% Cloth) 3 pack Taper DAILY@04 TOP 08/30/17 04:00 08/26/18 03:59 (Chlorhexidine 2% Cloth) 3 pack UNSCH PRN TOP 08/29/17 16:45 (Livier-Colace) 1 tab BID PO 08/29/17 21:00 09/02/17 09:00 (Milk Of Magnesia Liq) 30 ml Q12H PRN PO 08/29/17 16:45 (Senokot) 17.2 mg Q12H PRN PO 08/29/17 16:45 (Dulcolax Supp) 10 mg DAILY PRN RECTAL 08/29/17 16:45 (Lactulose Liq) 30 ml DAILY PRN PO 08/29/17 16:45 Nicardipine HCl 25 mg/Sodium Chloride 250 ml @ 50 mls/hr TITRATE PRN IV 08/29/17 16:45 (Trandate Inj) 10 mg Q1HR PRN IV PUSH 08/29/17 16:45 09/02/17 13:00 (Vasotec Inj) 2.5 mg Q6H PRN IV PUSH 08/29/17 16:45 09/02/17 14:33 (Pravachol) 40 mg HS PO 08/29/17 21:00 09/01/17 20:35 (D50w (Vial) Inj) 50 ml UNSCH PRN IV PUSH 08/29/17 16:45 (Glucagon Inj) 1 mg UNSCH PRN OTHER 08/29/17 16:45 (Protonix) 40 mg DAILY PO 08/30/17 09:00 09/02/17 10:00 Levetriacetam 100 ml @ 400 mls/hr Q8H IV 08/30/17 00:00 09/02/17 15:22 (Ativan Inj) 1 mg Q4H PRN IV 08/29/17 23:00 08/30/17 12:51 (Folate) 1 mg DAILY PO 08/31/17 09:00 09/05/17 08:59 09/02/17 10:00 (Vitamin B1) 100 mg DAILY PO 08/31/17 09:00 09/02/17 09:59 (Theragran M Tab) 1 tab DAILY PO 08/31/17 09:00 09/05/17 08:59 09/02/17 09:00 (Romazicon Inj) 0.2 mg Q1M PRN IV PUSH 08/30/17 15:15 (Ativan) 1 mg Q4H PRN PO 08/30/17 15:15 (Ativan Inj) 1 mg Q4H PRN IV PUSH 08/30/17 15:15 09/02/17 10:41 (Ativan Inj) 2 mg Q2H PRN IV PUSH 08/30/17 15:15 09/02/17 14:33 (Ativan Inj) 2 mg Q1H PRN IV PUSH 08/30/17 15:15 09/02/17 15:52 (Haldol Inj) 2 mg Q15M PRN IM 08/30/17 15:15 09/02/17 15:53 (Ecotrin Ec) 325 mg DAILY PO 08/30/17 20:15 09/02/17 09:59 (Librium) 25 mg TID PRN PO 08/31/17 14:45 (Ativan) 1 mg Q2H PRN PO 09/02/17 11:15 (Ativan Inj) 1 mg Q15M PRN IV PUSH 09/02/17 10:15 (Vasotec Inj) 5 mg Q8H IV PUSH 09/02/17 10:00 09/02/17 18:31 Allergies Allergies Coded Allergies No Known Allergies (Unverified Allergy, Unknown, 08/29/17) Exam I&O / VS 09/02/17 09/02/17 09/03/17 15:00 23:00 07:00 Intake Total 1050 ml 100 ml Output Total 950 ml Balance 1050 ml -850 ml IV Total 1050 ml 100 ml Output Urine Total 950 ml Vital Signs Date Time Temp Pulse Resp B/P (MAP) Pulse Ox O2 Delivery O2 Flow Rate FiO2 09/02/17 18:00 71 09/02/17 16:00 74 09/02/17 16:00 98.0 73 26 149/70 (96) 96 09/02/17 14:00 60 09/02/17 12:00 81 09/02/17 12:00 98.2 83 35 183/86 (118) 97 09/02/17 10:45 98 21 09/02/17 10:00 69 09/02/17 08:00 72 09/02/17 08:00 98.5 71 21 180/82 (114) 96 09/02/17 07:00 Room Air 09/02/17 06:00 58 09/02/17 04:00 98.5 76 23 183/85 (117) 96 09/02/17 04:00 76 09/02/17 02:00 72 09/02/17 00:00 62 09/02/17 00:00 98.1 62 19 187/84 (118) 94 09/01/17 22:00 60 09/01/17 20:30 94 21 Exam Comments lethargic but arousable speech normal . follow commands Cn intact MOTOR--5/5 BUE and BLE, normal tone. Objective Micro and Labs Laboratory Tests Test 09/02/17 05:05 White Blood Count 5.6 Red Blood Count 4.49 Hemoglobin 15.2 Hematocrit 44.2 Mean Corpuscular Volume 98.3 Mean Corpuscular Hemoglobin 33.9 Mean Corpuscular Hemoglobin Concent 34.5 Red Cell Distribution Width 13.1 Platelet Count 177 Mean Platelet Volume 7.6 Neutrophils (%) (Auto) 73.3 Lymphocytes (%) (Auto) 11.3 Monocytes (%) (Auto) 10.6 Eosinophils (%) (Auto) 4.1 Basophils (%) (Auto) 0.7 Neutrophils # (Auto) 4.1 Lymphocytes # (Auto) 0.6 Monocytes # (Auto) 0.6 Eosinophils # (Auto) 0.2 Basophils # (Auto) 0.0 CBC Comment DIFF FINAL Differential Comment Blood Urea Nitrogen 9 Creatinine 0.96 Random Glucose 78 Total Protein 7.1 Albumin 3.7 Calcium Level 8.6 Phosphorus Level 2.6 Magnesium Level 1.9 Alkaline Phosphatase 75 Aspartate Amino Transf (AST/SGOT) 43 Alanine Aminotransferase (ALT/SGPT) 37 Total Bilirubin 0.9 Sodium Level 141 Potassium Level 3.5 Chloride Level 107 Carbon Dioxide Level 27.3 Anion Gap 7 Estimat Glomerular Filtration Rate 77 Angel Cordero MD PhD Sep 02, 2017 20:23
[2017-09-02] MEDS: PRAVASTATIN SOD 40 MG TAB PO SCH (21:20)
[2017-09-03] VITALS (13 sets, daily range): BP systolic 146–189; BP diastolic 65–81; PULSE 58–78; RESP 11–16; TEMP 97.3–98.9; O2SAT 93–100
[2017-09-03] MEDS: levETIRAcetam INJ 100 ML IV SCH ×3 (00:35→19:38)
[2017-09-03] MEDS: CHLORHEXIDINE GLUCONATE 2 % 1 PACK (2 CLOTHS) TOP SCH (02:57)
[2017-09-03] MEDS: ENALAPRILAT 2.5 MG/2 ML VIAL IV PUSH SCH ×3 (02:57→19:39)
[2017-09-03 06:41] LABS: BICARBONATE 24.5 MEQ/L (21.0-32.0); CALCIUM 8.6 MG/DL (8.5-10.1); CREATININE 0.97 MG/DL (0.60-1.30); MAGNESIUM 1.8 MG/DL (1.5-2.5); PHOSPHORUS 3.1 MG/DL (2.5-4.9)
[2017-09-03] MEDS: DOCUSATE SODIUM 50 MG/SENNA 8.6 MG TAB PO SCH ×2 (09:00→21:38)
[2017-09-03] MEDS: MULTIVITAMINS/MINERALS THERAPEUTIC TAB PO SCH (09:00)
[2017-09-03] MEDS: SODIUM CHLORIDE 0.9% FLUSH 10 ML FLUSH IV FLUSH SCH ×2 (09:00→21:38)
[2017-09-03] MEDS: ARTIFICIAL TEARS OPTH SOLN 15 ML BTL EACH EYE SCH ×3 (10:20→19:37)
[2017-09-03] MEDS: FOLIC ACID 1 MG TAB PO SCH (10:20)
[2017-09-03] MEDS: THIAMINE HCL 100 MG TAB PO SCH (10:20)
[2017-09-03] MEDS: ASPIRIN EC 325 MG TABEC PO SCH (10:21)
[2017-09-03] MEDS: PANTOPRAZOLE SOD 40 MG DELAYED RELEASE TAB PO SCH (10:21)
[2017-09-03] MEDS: FAMOTIDINE 20 MG/2 ML VIAL IV PUSH SCH ×2 (10:22→21:38)
--- NOTE | 2017-09-03 13:39 | HHI.CCPN ---
Subjective Remarks/Hospital Course 08/29: 72-year-old man who was in his usual state of health until earlier today around 11:30 developed sudden onset of left-sided weakness in both the left leg and left arm with slurred speech. He presented initially to emergency department at [facility]. His blood pressure was elevated 204/95. After correction of his blood pressure he received infusion of alteplase and was transferred to [facility]. 08/30: Resting in bed. Left-sided neglect versus however has good power. Speech appropriate. Following commands. 08/31: Appears anxious, tremulous. Awake and alert. Knows he is in the hospital. Received multiple doses of Ativan for alcohol withdrawal. 09/01: Received multiple doses of Ativan overnight. + She still has some tremors. Having hallucinations off and on. Moves all 4 extremities. 09/02: Calm, sleeping. Will reduce ativan coverage for CIWA. Add iv vasotec for better BP control. 09/03: BP control improved on vasotec; add catapres patch for better control. Calm today. Objective Vital Signs Date Time Temp Pulse Resp B/P (MAP) Pulse Ox O2 Delivery O2 Flow Rate FiO2 09/03/17 10:00 62 09/03/17 08:00 97.3 13 163/74 (103) 100 09/03/17 07:00 Room Air 09/02/17 20:26 21 08/31/17 20:08 2.00 Intake and Output 09/03/17 09/03/17 09/04/17 08:00 16:00 00:00 Intake Total 50 ml Output Total 1050 ml Balance -1000 ml Result Diagram: 09/02/17 0505 09/03/17 0501 Imaging Last [address] 08/29/17 1632 Signed Impressions: Service Date/Time: Tuesday, August 29, 2017 16:38 - CONCLUSION: 1. No evidence of acute intracranial pathology. No masses are identified. Haseeb Nesbitt MD Neck CTA 08/29/17 0000 Signed Impressions: Service Date/Time: Tuesday, August 29, 2017 14:22 - CONCLUSION: 1. No evidence of hemodynamic significant lesion. There is 10-20%% on the right and 20-30%% on the left. Haseeb Nesbitt MD Head CTA 08/29/17 0000 Signed Impressions: Service Date/Time: Tuesday, August 29, 2017 14:22 - CONCLUSION: 1. Unremarkable CT angiography of the brain. Haseeb Nesbitt MD Head CT 08/29/17 0000 Signed Impressions: Service Date/Time: Tuesday, August 29, 2017 12:55 - CONCLUSION: 1. No evidence of acute intracranial pathology. No masses are identified. Haseeb Nesbitt MD Objective Remarks GENERAL: Well-nourished, well-developed patient. Somewhat anxious SKIN: Warm and dry. HEAD: Normocephalic. EYES: No scleral icterus. No injection or drainage. NECK: Supple, trachea midline. Airway widely patent. CARDIOVASCULAR: Regular rate and rhythm without murmurs, gallops, or rubs. No JVD. RESPIRATORY: Breath sounds equal bilaterally. No accessory muscle use. GASTROINTESTINAL: Abdomen soft, non-tender, nondistended. BS active. MUSCULOSKELETAL: No cyanosis, or edema. Well perfused. NEURO EXAM: Mental Status: Sleeping Cranial Nerves: Pupils are round, reactive to light. Reflexes: Biceps 2/4 bilaterally. No clonus. Motor: Good muscle tone. Strength is 5/5 bilaterally. A/P Assessment and Plan Acute CVA - CTA head and neck negative - Status post TPA infusion - Blood pressure control with the goal SBP less than 180 - Further imaging/ management per neurologist - On alcohol withdrawal protocol with Ativan when necessary. Hold scheduled Librium 25 mg 3 times a day for alcohol withdrawal. - PT and OT eval and treat as tolerated Alcohol withdrawal -Follows CIWA protocol, Ativan/haldol/Librium ordered. MVI/ folate/ Thiamine daily Hypertension - Cardene drip as needed - SBP goal less than 180 - Started Norvasc by mouth - Vasotec and hydralazine when necessary - Add catapres Hypothyroidism - Synthroid 25 g by mouth daily DVT GI prophylaxis - Teds SCDs - No pharmacological DVT prophylaxis 24 hours post TPA administration - Omeprazole Overall impression: Withdrawal symptoms controlled, will reduce scheduled sedation. Start to mobilize with PT. Luis Miguel Bobo MD Sep 03, 2017 13:39
[2017-09-03] MEDS ORDERED: cloNIDine HCL 0.1 MG/24 HR PATCH T-DERMAL SCH (15:00)
[2017-09-03] MEDS: SODIUM CHLOR 0.9% 1000 ML INJ 1,000 ML IV SCH (16:01)
[2017-09-03] MEDS: PRAVASTATIN SOD 40 MG TAB PO SCH (21:38)
[2017-09-03] MEDS: ACETAMINOPHEN/HYDROcodone 325 MG/5 MG TAB PO PRN (21:38)
[2017-09-04] VITALS (10 sets, daily range): BP systolic 129–183; BP diastolic 60–88; PULSE 59–86; RESP 12–23; TEMP 97–97.9; O2SAT 95–100
[2017-09-04] MEDS: levETIRAcetam INJ 100 ML IV SCH ×4 (00:16→23:04)
[2017-09-04] MEDS: CHLORHEXIDINE GLUCONATE 2 % 1 PACK (2 CLOTHS) TOP SCH ×2 (02:02→23:09)
[2017-09-04] MEDS: ENALAPRILAT 2.5 MG/2 ML VIAL IV PUSH SCH ×3 (02:03→18:34)
[2017-09-04] MEDS: ACETAMINOPHEN/HYDROcodone 325 MG/5 MG TAB PO PRN (04:26)
[2017-09-04] MEDS: SODIUM CHLORIDE 0.9% FLUSH 10 ML FLUSH IV FLUSH SCH ×2 (09:00→20:16)
[2017-09-04] MEDS: MULTIVITAMINS/MINERALS THERAPEUTIC TAB PO SCH (09:00)
[2017-09-04] MEDS: ARTIFICIAL TEARS OPTH SOLN 15 ML BTL EACH EYE SCH ×3 (09:00→18:00)
[2017-09-04] MEDS: FOLIC ACID 1 MG TAB PO SCH (10:29)
[2017-09-04] MEDS: PANTOPRAZOLE SOD 40 MG DELAYED RELEASE TAB PO SCH (10:29)
[2017-09-04] MEDS: FAMOTIDINE 20 MG/2 ML VIAL IV PUSH SCH ×2 (10:29→20:16)
[2017-09-04] MEDS: DOCUSATE SODIUM 50 MG/SENNA 8.6 MG TAB PO SCH ×2 (10:30→20:16)
[2017-09-04] MEDS: ASPIRIN EC 325 MG TABEC PO SCH (10:30)
[2017-09-04] MEDS: THIAMINE HCL 100 MG TAB PO SCH (10:30)
--- NOTE | 2017-09-04 11:04 | HHI.CCPN ---
Subjective Remarks/Hospital Course 08/29: 72-year-old man who was in his usual state of health until earlier today around 11:30 developed sudden onset of left-sided weakness in both the left leg and left arm with slurred speech. He presented initially to emergency department at [facility]. His blood pressure was elevated 204/95. After correction of his blood pressure he received infusion of alteplase and was transferred to [facility]. 08/30: Resting in bed. Left-sided neglect versus however has good power. Speech appropriate. Following commands. 08/31: Appears anxious, tremulous. Awake and alert. Knows he is in the hospital. Received multiple doses of Ativan for alcohol withdrawal. 09/01: Received multiple doses of Ativan overnight. + She still has some tremors. Having hallucinations off and on. Moves all 4 extremities. 09/02: Calm, sleeping. Will reduce ativan coverage for CIWA. Add iv vasotec for better BP control. 09/03: BP control improved on vasotec; add catapres patch for better control. Calm today. 09/04: Taking PO, will add lisonopril and taper off vasotec, reduce catapress. Objective Vital Signs Date Time Temp Pulse Resp B/P (MAP) Pulse Ox O2 Delivery O2 Flow Rate FiO2 09/04/17 06:00 61 09/04/17 05:00 165/78 (107) 09/04/17 04:00 97.0 16 99 09/03/17 21:28 Nasal Cannula 2.00 09/02/17 20:26 21 Intake and Output 09/04/17 09/04/17 09/05/17 08:00 16:00 00:00 Intake Total 1056 ml Output Total 2450 ml Balance -1394 ml Result Diagram: 09/02/17 0505 09/03/17 0501 Imaging Last [address] 08/29/17 1632 Signed Impressions: Service Date/Time: Tuesday, August 29, 2017 16:38 - CONCLUSION: 1. No evidence of acute intracranial pathology. No masses are identified. Haseeb Nesbitt MD Neck CTA 08/29/17 0000 Signed Impressions: Service Date/Time: Tuesday, August 29, 2017 14:22 - CONCLUSION: 1. No evidence of hemodynamic significant lesion. There is 10-20%% on the right and 20-30%% on the left. Haseeb Nesbitt MD Head CTA 08/29/17 0000 Signed Impressions: Service Date/Time: Tuesday, August 29, 2017 14:22 - CONCLUSION: 1. Unremarkable CT angiography of the brain. Haseeb Nesbitt MD Head CT 08/29/17 0000 Signed Impressions: Service Date/Time: Tuesday, August 29, 2017 12:55 - CONCLUSION: 1. No evidence of acute intracranial pathology. No masses are identified. Haseeb Nesbitt MD Objective Remarks GENERAL: Well-nourished, well-developed patient. Somewhat anxious SKIN: Warm and dry. HEAD: Normocephalic. EYES: No scleral icterus. No injection or drainage. NECK: Supple, trachea midline. Airway widely patent. CARDIOVASCULAR: Regular rate and rhythm without murmurs, gallops, or rubs. No JVD. RESPIRATORY: Breath sounds equal bilaterally. No accessory muscle use. GASTROINTESTINAL: Abdomen soft, non-tender, nondistended. BS active. MUSCULOSKELETAL: No cyanosis, or edema. Well perfused. NEURO EXAM: Mental Status: Sleeping Cranial Nerves: Pupils are round, reactive to light. Reflexes: Biceps 2/4 bilaterally. No clonus. Motor: Good muscle tone. Strength is 5/5 bilaterally. A/P Assessment and Plan Acute CVA - CTA head and neck negative - Status post TPA infusion - Blood pressure control with the goal SBP less than 180 - Further imaging/ management per neurologist - On alcohol withdrawal protocol with Ativan when necessary. Hold scheduled Librium 25 mg 3 times a day for alcohol withdrawal. - PT and OT eval and treat as tolerated Alcohol withdrawal -Follows CIWA protocol, Ativan/haldol/Librium ordered. MVI/ folate/ Thiamine daily Hypertension - Cardene drip as needed - SBP goal less than 180 - Started Norvasc by mouth - Vasotec and hydralazine when necessary - Add catapres Hypothyroidism - Synthroid 25 g by mouth daily DVT GI prophylaxis - Teds SCDs - No pharmacological DVT prophylaxis 24 hours post TPA administration - Omeprazole Overall impression: Withdrawal symptoms controlled, will continue to reduce scheduled sedation. Start to mobilize with PT. Luis Miguel Bobo MD Sep 04, 2017 11:04
[2017-09-04] MEDS: LISINOPRIL 5 MG TAB PO SCH ×2 (11:58→22:16)
[2017-09-04] MEDS: amLODIPine BESYLATE 5 MG TAB PO SCH (12:01)
[2017-09-04] MEDS: PRAVASTATIN SOD 40 MG TAB PO SCH (20:15)
[2017-09-05] VITALS: BP 173/80; PULSE 73; RESP 20; TEMP 98; O2SAT 98
[2017-09-05] MEDS: ENALAPRILAT 2.5 MG/2 ML VIAL IV PUSH SCH ×2 (02:05→10:50)
[2017-09-05 04:00] VITALS: BP 177/80; PULSE 71; RESP 13; TEMP 98; O2SAT 97
[2017-09-05 06:45] LABS: BICARBONATE 27.4 MEQ/L (21.0-32.0); CREATININE 1.03 MG/DL (0.60-1.30)
[2017-09-05 08:00] VITALS: BP 131/68; PULSE 75; RESP 17; TEMP 98.2; O2SAT 98
[2017-09-05] MEDS: levETIRAcetam INJ 100 ML IV SCH ×3 (08:17→23:41)
[2017-09-05] MEDS: DOCUSATE SODIUM 50 MG/SENNA 8.6 MG TAB PO SCH ×2 (08:19→20:13)
[2017-09-05] MEDS: ASPIRIN EC 325 MG TABEC PO SCH (08:19)
[2017-09-05] MEDS: LISINOPRIL 5 MG TAB PO SCH (08:19)
[2017-09-05] MEDS: amLODIPine BESYLATE 5 MG TAB PO SCH (08:19)
[2017-09-05] MEDS: THIAMINE HCL 100 MG TAB PO SCH (08:19)
[2017-09-05] MEDS: PANTOPRAZOLE SOD 40 MG DELAYED RELEASE TAB PO SCH (08:19)
[2017-09-05] MEDS: FAMOTIDINE 20 MG/2 ML VIAL IV PUSH SCH ×2 (08:24→20:13)
[2017-09-05] MEDS: SODIUM CHLORIDE 0.9% FLUSH 10 ML FLUSH IV FLUSH SCH ×2 (08:24→20:14)
[2017-09-05] MEDS: ARTIFICIAL TEARS OPTH SOLN 15 ML BTL EACH EYE SCH ×3 (08:24→18:00)
[2017-09-05] MEDS ORDERED: POTASSIUM CHLORIDE 25 MEQ EFFERVESCENT TAB PO ONE (11:45)
[2017-09-05 12:00] VITALS: BP 174/84; PULSE 80; RESP 27; TEMP 98.2; O2SAT 93
--- NOTE | 2017-09-05 15:08 | HHI.CCPN ---
Subjective Remarks/Hospital Course 08/29: 72-year-old man who was in his usual state of health until earlier today around 11:30 developed sudden onset of left-sided weakness in both the left leg and left arm with slurred speech. He presented initially to emergency department at [facility]. His blood pressure was elevated 204/95. After correction of his blood pressure he received infusion of alteplase and was transferred to [facility]. 08/30: Resting in bed. Left-sided neglect versus however has good power. Speech appropriate. Following commands. 08/31: Appears anxious, tremulous. Awake and alert. Knows he is in the hospital. Received multiple doses of Ativan for alcohol withdrawal. 09/01: Received multiple doses of Ativan overnight. + She still has some tremors. Having hallucinations off and on. Moves all 4 extremities. 09/02: Calm, sleeping. Will reduce ativan coverage for CIWA. Add iv vasotec for better BP control. 09/03: BP control improved on vasotec; add catapres patch for better control. Calm today. 09/04: Taking PO, will add lisonopril and taper off vasotec, reduce catapress. 09/05: BP control improved. Alert, cooperative. Objective Vital Signs Date Time Temp Pulse Resp B/P (MAP) Pulse Ox O2 Delivery O2 Flow Rate FiO2 09/05/17 08:14 Nasal Cannula 09/05/17 08:00 75 09/05/17 08:00 98.2 17 131/68 (89) 98 09/05/17 07:00 2.00 09/02/17 20:26 21 Intake and Output 09/05/17 09/05/17 09/06/17 08:00 16:00 00:00 Intake Total 420 ml 100 ml Output Total 500 ml Balance -80 ml 100 ml Result Diagram: 09/02/17 0505 09/05/17 0533 Imaging Last [address] 08/29/17 1632 Signed Impressions: Service Date/Time: Tuesday, August 29, 2017 16:38 - CONCLUSION: 1. No evidence of acute intracranial pathology. No masses are identified. Haseeb Nesbitt MD Neck CTA 08/29/17 0000 Signed Impressions: Service Date/Time: Tuesday, August 29, 2017 14:22 - CONCLUSION: 1. No evidence of hemodynamic significant lesion. There is 10-20%% on the right and 20-30%% on the left. Haseeb Nesbitt MD Head CTA 08/29/17 0000 Signed Impressions: Service Date/Time: Tuesday, August 29, 2017 14:22 - CONCLUSION: 1. Unremarkable CT angiography of the brain. Haseeb Nesbitt MD Head CT 08/29/17 0000 Signed Impressions: Service Date/Time: Tuesday, August 29, 2017 12:55 - CONCLUSION: 1. No evidence of acute intracranial pathology. No masses are identified. Haseeb Nesbitt MD Objective Remarks GENERAL: Well-nourished, well-developed patient. Calm. SKIN: Warm and dry. HEAD: Normocephalic. EYES: No scleral icterus. No injection or drainage. NECK: Supple, trachea midline. Airway widely patent. CARDIOVASCULAR: Regular rate and rhythm without murmurs, gallops, or rubs. No JVD. RESPIRATORY: Breath sounds equal bilaterally. No accessory muscle use. GASTROINTESTINAL: Abdomen soft, non-tender, nondistended. BS active. MUSCULOSKELETAL: No cyanosis, or edema. Well perfused. NEURO EXAM: Moves 4 limbs spontaneously. Conversant, oriented X 3. A/P Assessment and Plan Acute CVA - CTA head and neck negative - Status post TPA infusion - Blood pressure control with the goal SBP less than 180 - Further imaging/ management per neurologist - On alcohol withdrawal protocol with Ativan when necessary. Hold scheduled Librium 25 mg 3 times a day for alcohol withdrawal. - PT and OT eval and treat as tolerated Alcohol withdrawal -Follows CIWA protocol, Ativan/haldol/Librium ordered. MVI/ folate/ Thiamine daily Hypertension - Cardene drip as needed - SBP goal less than 180 - Started Norvasc by mouth - Vasotec and hydralazine when necessary - Add catapres Hypothyroidism - Synthroid 25 g by mouth daily DVT GI prophylaxis - Teds SCDs - No pharmacological DVT prophylaxis 24 hours post TPA administration - Omeprazole Overall impression: Withdrawal symptoms controlled, will continue to reduce scheduled sedation. Oriented today, past withdrawal I suspect. Start to mobilize with PT. Luis Miguel Bobo MD Sep 05, 2017 15:08
[2017-09-05 16:00] VITALS: BP 167/77; PULSE 74; RESP 15; TEMP 98.4; O2SAT 94
[2017-09-05] MEDS: CHLORHEXIDINE GLUCONATE 2 % 1 PACK (2 CLOTHS) TOP SCH (19:56)
[2017-09-05 20:00] VITALS: BP 167/76; PULSE 78; RESP 22; TEMP 98.7; O2SAT 95
[2017-09-05] MEDS: PRAVASTATIN SOD 40 MG TAB PO SCH (20:14)
[2017-09-05] MEDS: LISINOPRIL 10 MG TAB PO SCH (20:14)
[2017-09-05] MEDS ORDERED: ALPRAZolam 0.5 MG TAB PO ONE (21:00)
[2017-09-06] VITALS (8 sets, daily range): BP systolic 126–180; BP diastolic 60–109; PULSE 72–88; RESP 14–19; TEMP 98.2–99; O2SAT 93–99
[2017-09-06 06:04] LABS: CALCIUM 9.2 MG/DL (8.5-10.1); CREATININE 0.98 MG/DL (0.60-1.30)
[2017-09-06 06:05] LABS: BICARBONATE 27.3 MEQ/L (21.0-32.0)
[2017-09-06] MEDS: SODIUM CHLORIDE 0.9% FLUSH 10 ML FLUSH IV FLUSH SCH ×2 (08:01→20:37)
[2017-09-06] MEDS: amLODIPine BESYLATE 5 MG TAB PO SCH (08:01)
[2017-09-06] MEDS: levETIRAcetam INJ 100 ML IV SCH ×2 (08:01→16:00)
[2017-09-06] MEDS: FAMOTIDINE 20 MG/2 ML VIAL IV PUSH SCH ×2 (08:01→20:37)
[2017-09-06] MEDS: PANTOPRAZOLE SOD 40 MG DELAYED RELEASE TAB PO SCH (08:03)
[2017-09-06] MEDS: DOCUSATE SODIUM 50 MG/SENNA 8.6 MG TAB PO SCH ×2 (08:03→20:37)
[2017-09-06] MEDS: ASPIRIN EC 325 MG TABEC PO SCH (08:03)
[2017-09-06] MEDS: LISINOPRIL 10 MG TAB PO SCH ×2 (08:03→20:36)
[2017-09-06] MEDS: THIAMINE HCL 100 MG TAB PO SCH (08:03)
[2017-09-06] MEDS: ARTIFICIAL TEARS OPTH SOLN 15 ML BTL EACH EYE SCH ×3 (08:14→17:03)
--- NOTE | 2017-09-06 15:21 | HHI.CCPN ---
Subjective Remarks/Hospital Course 08/29: 72-year-old man who was in his usual state of health until earlier today around 11:30 developed sudden onset of left-sided weakness in both the left leg and left arm with slurred speech. He presented initially to emergency department at [facility]. His blood pressure was elevated 204/95. After correction of his blood pressure he received infusion of alteplase and was transferred to [facility]. 08/30: Resting in bed. Left-sided neglect versus however has good power. Speech appropriate. Following commands. 08/31: Appears anxious, tremulous. Awake and alert. Knows he is in the hospital. Received multiple doses of Ativan for alcohol withdrawal. 09/01: Received multiple doses of Ativan overnight. + She still has some tremors. Having hallucinations off and on. Moves all 4 extremities. 09/02: Calm, sleeping. Will reduce ativan coverage for CIWA. Add iv vasotec for better BP control. 09/03: BP control improved on vasotec; add catapres patch for better control. Calm today. 09/04: Taking PO, will add lisonopril and taper off vasotec, reduce catapress. 09/05: BP control improved. Alert, cooperative. 09/06: Confused overnight. Calm now. BP controlled. Objective Vital Signs Date Time Temp Pulse Resp B/P (MAP) Pulse Ox O2 Delivery O2 Flow Rate FiO2 09/06/17 12:00 98.2 76 17 126/60 (82) 99 09/06/17 07:00 Nasal Cannula 3.00 09/02/17 20:26 21 Intake and Output 09/06/17 09/06/17 09/07/17 08:00 16:00 00:00 Intake Total 300 ml Output Total 500 ml Balance -200 ml Result Diagram: 09/02/17 0505 09/06/17 0429 Imaging Last [address] 08/29/17 1632 Signed Impressions: Service Date/Time: Tuesday, August 29, 2017 16:38 - CONCLUSION: 1. No evidence of acute intracranial pathology. No masses are identified. Haseeb Nesbitt MD Neck CTA 08/29/17 0000 Signed Impressions: Service Date/Time: Tuesday, August 29, 2017 14:22 - CONCLUSION: 1. No evidence of hemodynamic significant lesion. There is 10-20%% on the right and 20-30%% on the left. Haseeb Nesbitt MD Head CTA 08/29/17 0000 Signed Impressions: Service Date/Time: Tuesday, August 29, 2017 14:22 - CONCLUSION: 1. Unremarkable CT angiography of the brain. Haseeb Nesbitt MD Head CT 08/29/17 0000 Signed Impressions: Service Date/Time: Tuesday, August 29, 2017 12:55 - CONCLUSION: 1. No evidence of acute intracranial pathology. No masses are identified. Haseeb Nesbitt MD Objective Remarks GENERAL: Well-nourished, well-developed patient. Calm. SKIN: Warm and dry. HEAD: Normocephalic. EYES: No scleral icterus. No injection or drainage. NECK: Supple, trachea midline. Airway widely patent. CARDIOVASCULAR: Regular rate and rhythm without murmurs, gallops, or rubs. No JVD. RESPIRATORY: Breath sounds equal bilaterally. No accessory muscle use. GASTROINTESTINAL: Abdomen soft, non-tender, nondistended. BS active. MUSCULOSKELETAL: No cyanosis, or edema. Well perfused. NEURO EXAM: Moves 4 limbs spontaneously. Conversant, oriented X 3. A/P Assessment and Plan Acute CVA - CTA head and neck negative - Status post TPA infusion - Blood pressure control with the goal SBP less than 180 - Further imaging/ management per neurologist - On alcohol withdrawal protocol with Ativan when necessary. - PT and OT eval and treat as tolerated Alcohol withdrawal -Follows CIWA protocol, Ativan/haldol/Librium ordered. MVI/ folate/ Thiamine daily Hypertension - Cardene drip as needed - SBP goal less than 180 - Started Norvasc by mouth - Vasotec and hydralazine when necessary - Add catapres Hypothyroidism - Synthroid 25 g by mouth daily DVT GI prophylaxis - Teds SCDs - No pharmacological DVT prophylaxis 24 hours post TPA administration - Omeprazole Overall impression: Withdrawal symptoms controlled, will continue to reduce scheduled sedation. Oriented today, past withdrawal I suspect. Start to mobilize with PT. Luis Miguel Bobo MD Sep 06, 2017 15:21
[2017-09-06] MEDS ORDERED: POTASSIUM CHLORIDE 25 MEQ EFFERVESCENT TAB PO ONE (17:00)
[2017-09-06] MEDS: PRAVASTATIN SOD 40 MG TAB PO SCH (20:36)
[2017-09-06] MEDS: LORazepam 1 MG TAB PO PRN (20:53)
[2017-09-07] VITALS (10 sets, daily range): BP systolic 113–174; BP diastolic 66–90; PULSE 68–96; RESP 17–28; TEMP 97.7–98.7; O2SAT 93–98
[2017-09-07] MEDS: CHLORHEXIDINE GLUCONATE 2 % 1 PACK (2 CLOTHS) TOP SCH (00:16)
[2017-09-07] MEDS: levETIRAcetam INJ 100 ML IV SCH ×4 (00:17→23:45)
[2017-09-07] MEDS: HALOPERIDOL LACTATE 5 MG/ML AMP IM PRN (08:16)
[2017-09-07] MEDS: SODIUM CHLORIDE 0.9% FLUSH 10 ML FLUSH IV FLUSH SCH ×2 (08:16→21:19)
[2017-09-07] MEDS: LORazepam 2 MG/ML VIAL IV PUSH PRN (09:10)
[2017-09-07] MEDS: FAMOTIDINE 20 MG/2 ML VIAL IV PUSH SCH ×2 (09:57→21:19)
[2017-09-07] MEDS: ASPIRIN EC 325 MG TABEC PO SCH (09:58)
[2017-09-07] MEDS: DOCUSATE SODIUM 50 MG/SENNA 8.6 MG TAB PO SCH ×2 (09:58→21:19)
[2017-09-07] MEDS: PANTOPRAZOLE SOD 40 MG DELAYED RELEASE TAB PO SCH (09:58)
[2017-09-07] MEDS: LISINOPRIL 10 MG TAB PO SCH ×2 (09:58→21:19)
[2017-09-07] MEDS: amLODIPine BESYLATE 5 MG TAB PO SCH ×2 (09:58→21:19)
[2017-09-07] MEDS: ARTIFICIAL TEARS OPTH SOLN 15 ML BTL EACH EYE SCH ×3 (09:58→18:00)
[2017-09-07] MEDS: THIAMINE HCL 100 MG TAB PO SCH (09:58)
--- NOTE | 2017-09-07 11:22 | HHI.CCPN ---
Subjective Remarks/Hospital Course 08/29: 72-year-old man who was in his usual state of health until earlier today around 11:30 developed sudden onset of left-sided weakness in both the left leg and left arm with slurred speech. He presented initially to emergency department at [facility]. His blood pressure was elevated 204/95. After correction of his blood pressure he received infusion of alteplase and was transferred to [facility]. 08/30: Resting in bed. Left-sided neglect versus however has good power. Speech appropriate. Following commands. 08/31: Appears anxious, tremulous. Awake and alert. Knows he is in the hospital. Received multiple doses of Ativan for alcohol withdrawal. 09/01: Received multiple doses of Ativan overnight. + She still has some tremors. Having hallucinations off and on. Moves all 4 extremities. 09/02: Calm, sleeping. Will reduce ativan coverage for CIWA. Add iv vasotec for better BP control. 09/03: BP control improved on vasotec; add catapres patch for better control. Calm today. 09/04: Taking PO, will add lisonopril and taper off vasotec, reduce catapress. 09/05: BP control improved. Alert, cooperative. 09/06: Confused overnight. Calm now. BP controlled. 09/07: Mobilizing with assistance. BP control OK. Objective Vital Signs Date Time Temp Pulse Resp B/P (MAP) Pulse Ox O2 Delivery O2 Flow Rate FiO2 09/07/17 08:11 95 21 09/07/17 04:00 84 09/07/17 04:00 98.7 19 148/74 (98) 09/06/17 22:00 Room Air 09/06/17 07:00 3.00 Intake and Output 09/07/17 09/07/17 09/08/17 08:00 16:00 00:00 Intake Total 540 ml Output Total 750 ml Balance -210 ml Result Diagram: 09/06/17 0429 Imaging Last [address] 08/29/17 1632 Signed Impressions: Service Date/Time: Tuesday, August 29, 2017 16:38 - CONCLUSION: 1. No evidence of acute intracranial pathology. No masses are identified. Haseeb Nesbitt MD Neck CTA 08/29/17 0000 Signed Impressions: Service Date/Time: Tuesday, August 29, 2017 14:22 - CONCLUSION: 1. No evidence of hemodynamic significant lesion. There is 10-20%% on the right and 20-30%% on the left. Haseeb Nesbitt MD Head CTA 08/29/17 0000 Signed Impressions: Service Date/Time: Tuesday, August 29, 2017 14:22 - CONCLUSION: 1. Unremarkable CT angiography of the brain. Haseeb Nesbitt MD Head CT 08/29/17 0000 Signed Impressions: Service Date/Time: Tuesday, August 29, 2017 12:55 - CONCLUSION: 1. No evidence of acute intracranial pathology. No masses are identified. Haseeb Nesbitt MD Objective Remarks GENERAL: Well-nourished, well-developed patient. Calm. SKIN: Warm and dry. HEAD: Normocephalic. EYES: No scleral icterus. No injection or drainage. NECK: Supple, trachea midline. Airway widely patent. CARDIOVASCULAR: Regular rate and rhythm without murmurs, gallops, or rubs. No JVD. RESPIRATORY: Breath sounds equal bilaterally. No accessory muscle use. GASTROINTESTINAL: Abdomen soft, non-tender, nondistended. BS active. MUSCULOSKELETAL: No cyanosis, or edema. Well perfused. NEURO EXAM: Moves 4 limbs spontaneously. Conversant, oriented X 3. Confused daily, intermittently. A/P Assessment and Plan Acute CVA - CTA head and neck negative - Status post TPA infusion - Blood pressure control with the goal SBP less than 180 - Further imaging/ management per neurologist - On alcohol withdrawal protocol with Ativan when necessary. - PT and OT eval and treat as tolerated Alcohol withdrawal -Follows CIWA protocol, Ativan/haldol/Librium ordered. MVI/ folate/ Thiamine daily Hypertension - Cardene drip as needed - SBP goal less than 180 - Started Norvasc by mouth - Vasotec and hydralazine when necessary - Add catapres - Increase norvasc to 5 mg bid. Hypothyroidism - Synthroid 25 g by mouth daily DVT GI prophylaxis - Teds SCDs - No pharmacological DVT prophylaxis 24 hours post TPA administration - Omeprazole Overall impression: Withdrawal symptoms have passed, will stop scheduled sedation. Start to mobilize with PT. Needs rehab. Luis Miguel Bobo MD Sep 07, 2017 11:22
[2017-09-07] MEDS: LACTULOSE SYRUP 20 GM/30 ML CUP PO PRN (14:15)
[2017-09-07] MEDS: PRAVASTATIN SOD 40 MG TAB PO SCH (21:19)
[2017-09-07] MEDS: LORazepam 1 MG TAB PO PRN (23:45)
[2017-09-08] VITALS: BP 152/73; PULSE 81; RESP 20; TEMP 98.3; O2SAT 94
[2017-09-08 04:00] VITALS: BP 134/66; PULSE 80; RESP 17; TEMP 98.4; O2SAT 94
[2017-09-08] MEDS: CHLORHEXIDINE GLUCONATE 2 % 1 PACK (2 CLOTHS) TOP SCH (04:00)
[2017-09-08 08:00] VITALS: BP 144/67; PULSE 71; PULSE 77; RESP 16; TEMP 97.7; O2SAT 97
[2017-09-08] MEDS: LISINOPRIL 10 MG TAB PO SCH ×2 (08:39→19:48)
[2017-09-08] MEDS: levETIRAcetam INJ 100 ML IV SCH (08:39)
[2017-09-08] MEDS: SODIUM CHLORIDE 0.9% FLUSH 10 ML FLUSH IV FLUSH SCH ×2 (08:39→19:49)
[2017-09-08] MEDS: ARTIFICIAL TEARS OPTH SOLN 15 ML BTL EACH EYE SCH (08:39)
[2017-09-08] MEDS: PANTOPRAZOLE SOD 40 MG DELAYED RELEASE TAB PO SCH (08:39)
[2017-09-08] MEDS: FAMOTIDINE 20 MG/2 ML VIAL IV PUSH SCH (08:39)
[2017-09-08] MEDS: DOCUSATE SODIUM 50 MG/SENNA 8.6 MG TAB PO SCH ×2 (08:39→19:49)
[2017-09-08] MEDS: ASPIRIN EC 325 MG TABEC PO SCH (08:39)
[2017-09-08] MEDS: amLODIPine BESYLATE 5 MG TAB PO SCH ×2 (08:39→19:48)
[2017-09-08] MEDS: THIAMINE HCL 100 MG TAB PO SCH (08:39)
[2017-09-08 08:40] LABS: ALBUMIN 3.6 GM/DL (3.4-5.0); AST (GOT) 31 U/L (15-37); BICARBONATE 28.5 MEQ/L (21.0-32.0); BLOOD UREA NITROGEN 19 MG/DL (7-18); CALCIUM 9.4 MG/DL (8.5-10.1); CHLORIDE 103 MEQ/L (98-107); CREATININE 1.13 MG/DL (0.60-1.30); GLOMERULAR FILTRATION RATE 64 ML/MIN (>89); GLUCOSE,RANDOM 95 MG/DL (74-106); SODIUM (NA) 137 MEQ/L (136-145)
[2017-09-08 08:44] LABS: ALKALINE PHOSPHATASE 93 U/L (45-117); ALT (GPT) 38 U/L (12-78); TOTAL BILIRUBIN ADULT 0.8 MG/DL (0.2-1.0); TOTAL PROTEIN 7.2 GM/DL (6.4-8.2)
[2017-09-08] MEDS ORDERED: levETIRAcetam 500 MG/5 ML UDC PO SCH (09:00)
[2017-09-08] MEDS ORDERED: CLON.1T T-DERMAL (09:15)
[2017-09-08] MEDS ORDERED: LEVE500 PO (09:15)
[2017-09-08] MEDS ORDERED: chlordiazePOXIDE 25 MG CAP PO PRN (09:15)
[2017-09-08] MEDS ORDERED: CHLO25CA9 PO (09:15)
[2017-09-08] MEDS ORDERED: LISI10TA3 PO (09:15)
[2017-09-08] MEDS ORDERED: PERI PO (09:15)
[2017-09-08] MEDS ORDERED: ASPI325T33 PO (09:15)
[2017-09-08] MEDS ORDERED: AMLO5 PO (09:15)
--- NOTE | 2017-09-08 09:21 | HHI.DS ---
Discharge Summary Admission Date Aug 29, 2017 at 14:16 Discharge Date: Sep 08, 2017 Admitting Diagnosis CVA (1) CVA (cerebral vascular accident) ICD Code: I63.9 - Cerebral infarction, unspecified Diagnosis: Principal Status: Acute Brief History 72-year-old man who was in his usual state of health until earlier today around 11:30 developed sudden onset of left-sided weakness in both the left leg and left arm with slurred speech. He presented initially to emergency department at [facility]. His blood pressure was elevated 204/95. After correction of his blood pressure he received infusion of alteplase and was transferred to [facility]. CBC/BMP: 09/08/17 0759 Significant Findings Laboratory Tests Test 09/06/17 04:29 09/08/17 07:59 Potassium Level 3.4 MEQ/L (3.5-5.1) Estimat Glomerular Filtration Rate 75 ML/MIN (>89) 64 ML/MIN (>89) Blood Urea Nitrogen 19 MG/DL (7-18) PE at Discharge gen: awake, alert, nad. heent: perrl. mmm. neck: no jvd. trachea midline. chest: room air. unlabored. cv: normal rate, regular rhythm. abd: soft, nontender, nondistended. extr: no peripheral edema. neuro: RASS 0. CAM -. follows commands on left. Hospital Course 08/29: 72-year-old man who was in his usual state of health until earlier today around 11:30 developed sudden onset of left-sided weakness in both the left leg and left arm with slurred speech. He presented initially to emergency department at [facility]. His blood pressure was elevated 204/95. After correction of his blood pressure he received infusion of alteplase and was transferred to [facility]. 08/30: Resting in bed. Left-sided neglect versus however has good power. Speech appropriate. Following commands. 08/31: Appears anxious, tremulous. Awake and alert. Knows he is in the hospital. Received multiple doses of Ativan for alcohol withdrawal. 09/01: Received multiple doses of Ativan overnight. + She still has some tremors. Having hallucinations off and on. Moves all 4 extremities. 09/02: Calm, sleeping. Will reduce ativan coverage for CIWA. Add iv vasotec for better BP control. 09/03: BP control improved on vasotec; add catapres patch for better control. Calm today. 09/04: Taking PO, will add lisonopril and taper off vasotec, reduce catapress. 09/05: BP control improved. Alert, cooperative. 09/06: Confused overnight. Calm now. BP controlled. 09/07: Mobilizing with assistance. BP control OK. 09/08: continues to do well. no evidence of delirium today. up in a chair. on room air. tolerating diet. no complaints. ROS negative. stable for transfer to [facility]. Pt Condition on Discharge: Stable Discharge Disposition: Rehab Inpatient Discharge Instructions DIET: Follow Instructions for: As Tolerated, No Restrictions Speech Therapy-Diet Recommends: Regular Activities you can perform: Regular-No Restrictions Additional Information I have spent in excess of 30 minutes in the evaluation, care, management, and discharge coordination of this patient. Peterson Miles MD Sep 08, 2017 09:21
[2017-09-08] MEDS ORDERED: PRAV40TA PO (09:23)
[2017-09-08] MEDS: levETIRAcetam 500 MG TAB PO SCH ×2 (10:00→18:21)
[2017-09-08 12:00] VITALS: BP 128/58; PULSE 79; RESP 22; TEMP 97.8; O2SAT 100
[2017-09-08 14:58] LABS: AUTOMATED NEUTROPHIL # 6.9 TH/MM3 (1.8-7.7); BASOPHIL # 0.1 TH/MM3 (0-0.2); BASOPHIL % 0.7 % (0.0-2.0); EOSINOPHIL # 0.2 TH/MM3 (0-0.4); HEMATOCRIT 43.5 % (39.0-51.0); HEMOGLOBIN 14.8 GM/DL (13.0-17.0); LYMPH % 11.1 % (9.0-44.0); LYMPHOCYTE # 1.1 TH/MM3 (1.0-4.8); MEAN CELL VOLUME 98.1 FL (80.0-100.0); MEAN CORPUSCULAR HEMOGLOBIN 33.4 PG (27.0-34.0); MEAN PLATELET VOLUME 7.8 FL (7.0-11.0); MONO % 13.9 % (0.0-8.0); MONOCYTE # 1.3 TH/MM3 (0-0.9); NEUT % 72.3 % (16.0-70.0); PLATELET COUNT 268 TH/MM3 (150-450); RED BLOOD COUNT 4.44 MIL/MM3 (4.50-5.90); RED CELL DISTRIBUTION WIDTH 13.1 % (11.6-17.2); WHITE BLOOD COUNT 9.5 TH/MM3 (4.0-11.0)
[2017-09-08 16:00] VITALS: BP 119/63; PULSE 74; PULSE 78; RESP 18; TEMP 98.1; O2SAT 100
[2017-09-08] MEDS: PRAVASTATIN SOD 40 MG TAB PO SCH (19:49)
[2017-09-08 20:00] VITALS: BP 138/74; PULSE 71; RESP 16; TEMP 97.7; O2SAT 97
[2017-09-09] VITALS: BP 152/71; PULSE 78; RESP 22; TEMP 98.2; O2SAT 96
[2017-09-09] MEDS: levETIRAcetam 500 MG TAB PO SCH ×2 (01:16→09:09)
[2017-09-09 04:00] VITALS: BP 142/71; PULSE 73; RESP 18; TEMP 98.3; O2SAT 96
[2017-09-09] MEDS: CHLORHEXIDINE GLUCONATE 2 % 1 PACK (2 CLOTHS) TOP SCH (04:00)
[2017-09-09 05:14] LABS: BASOPHIL # 0.1 TH/MM3 (0-0.2); BASOPHIL % 0.9 % (0.0-2.0); EOSINOPHIL # 0.2 TH/MM3 (0-0.4); EOSINOPHIL % 2.8 % (0.0-4.0); HEMATOCRIT 38.8 % (39.0-51.0); HEMOGLOBIN 13.6 GM/DL (13.0-17.0); LYMPHOCYTE # 1.1 TH/MM3 (1.0-4.8); MEAN CELL VOLUME 95.9 FL (80.0-100.0); MEAN CORPUSCULAR HEMOGLOBIN 33.6 PG (27.0-34.0); MEAN PLATELET VOLUME 7.7 FL (7.0-11.0); MONOCYTE # 1.1 TH/MM3 (0-0.9); NEUT % 66.3 % (16.0-70.0); PLATELET COUNT 255 TH/MM3 (150-450); RED BLOOD COUNT 4.05 MIL/MM3 (4.50-5.90); RED CELL DISTRIBUTION WIDTH 12.6 % (11.6-17.2); WHITE BLOOD COUNT 7.6 TH/MM3 (4.0-11.0)
[2017-09-09 05:34] LABS: ALBUMIN 3.6 GM/DL (3.4-5.0); AST (GOT) 36 U/L (15-37); BLOOD UREA NITROGEN 20 MG/DL (7-18); CHLORIDE 102 MEQ/L (98-107); CREATININE 1.18 MG/DL (0.60-1.30); GLOMERULAR FILTRATION RATE 61 ML/MIN (>89); GLUCOSE,RANDOM 102 MG/DL (74-106); SODIUM (NA) 137 MEQ/L (136-145)
[2017-09-09 05:39] LABS: ALKALINE PHOSPHATASE 101 U/L (45-117); ALT (GPT) 40 U/L (12-78); TOTAL BILIRUBIN ADULT 0.8 MG/DL (0.2-1.0); TOTAL PROTEIN 7.4 GM/DL (6.4-8.2)
[2017-09-09 08:00] VITALS: BP 147/70; PULSE 75; RESP 16; TEMP 98.1; O2SAT 96
[2017-09-09] MEDS: SODIUM CHLORIDE 0.9% FLUSH 10 ML FLUSH IV FLUSH SCH (08:52)
[2017-09-09] MEDS: DOCUSATE SODIUM 50 MG/SENNA 8.6 MG TAB PO SCH (08:52)
[2017-09-09] MEDS: LACTULOSE SYRUP 20 GM/30 ML CUP PO PRN (08:52)
[2017-09-09] MEDS: PANTOPRAZOLE SOD 40 MG DELAYED RELEASE TAB PO SCH (08:52)
[2017-09-09] MEDS: ASPIRIN EC 325 MG TABEC PO SCH (08:53)
[2017-09-09] MEDS: amLODIPine BESYLATE 5 MG TAB PO SCH (08:53)
[2017-09-09] MEDS: LISINOPRIL 10 MG TAB PO SCH (08:53)
[2017-09-09 12:00] VITALS: PULSE 77
[2017-09-09 16:00] VITALS: BP 134/71; PULSE 78; RESP 18; TEMP 98.2; O2SAT 100
--- NOTE | 2017-09-09 17:29 | HHI.CCPN ---
Subjective Remarks/Hospital Course 08/29: 72-year-old man who was in his usual state of health until earlier today around 11:30 developed sudden onset of left-sided weakness in both the left leg and left arm with slurred speech. He presented initially to emergency department at [facility]. His blood pressure was elevated 204/95. After correction of his blood pressure he received infusion of alteplase and was transferred to [facility]. 08/30: Resting in bed. Left-sided neglect versus however has good power. Speech appropriate. Following commands. 08/31: Appears anxious, tremulous. Awake and alert. Knows he is in the hospital. Received multiple doses of Ativan for alcohol withdrawal. 09/01: Received multiple doses of Ativan overnight. + She still has some tremors. Having hallucinations off and on. Moves all 4 extremities. 09/02: Calm, sleeping. Will reduce ativan coverage for CIWA. Add iv vasotec for better BP control. 09/03: BP control improved on vasotec; add catapres patch for better control. Calm today. 09/04: Taking PO, will add lisonopril and taper off vasotec, reduce catapress. 09/05: BP control improved. Alert, cooperative. 09/06: Confused overnight. Calm now. BP controlled. 09/07: Mobilizing with assistance. BP control OK. 09/08: continues to do well. no evidence of delirium today. up in a chair. on room air. tolerating diet. no complaints. ROS negative. stable for transfer to [facility]. Subjective 09/09: Currently resting in bed in no acute distress. No seizure activity. Tolerating diet. Blood pressure control. Objective Vital Signs Date Time Temp Pulse Resp B/P (MAP) Pulse Ox O2 Delivery O2 Flow Rate FiO2 09/09/17 16:00 78 09/09/17 16:00 98.2 18 134/71 (92) 100 09/09/17 07:00 Room Air 09/07/17 19:00 2.00 09/07/17 08:11 21 Intake and Output 09/09/17 09/09/17 09/10/17 08:00 16:00 00:00 Intake Total 350 ml Output Total 1300 ml Balance -950 ml Result Diagram: 09/09/17 0455 09/09/17 0455 Imaging Last Impressions Head CT 08/30/17 1300 Signed Impressions: Service Date/Time: Wednesday, August 30, 2017 14:19 - CONCLUSION: Negative noncontrast axial head CT. Juan Francisco Castro MD FACR Brain MRI 08/30/17 0000 Signed Impressions: Service Date/Time: Wednesday, August 30, 2017 09:45 - CONCLUSION: 1. Age- related changes with mild periventricular T2 hyperintensity. 2. Focal T2 hyperintensity in the left thalamus without restricted diffusion or abnormal enhancement. This may represent a small subacute infarct. 3. No evidence of acute infarct, hemorrhage, mass or edema. Star Augustin MD Neck CTA 08/29/17 0000 Signed Impressions: Service Date/Time: Tuesday, August 29, 2017 14:22 - CONCLUSION: 1. No evidence of hemodynamic significant lesion. There is 10-20%% on the right and 20-30%% on the left. Haseeb Nesbitt MD Head CTA 08/29/17 0000 Signed Impressions: Service Date/Time: Tuesday, August 29, 2017 14:22 - CONCLUSION: 1. Unremarkable CT angiography of the brain. Haseeb Nesbitt MD Objective Remarks GENERAL: 32-year-old male. Well-nourished, well-developed patient. Calm. SKIN: Warm and dry. HEAD: Normocephalic. EYES: No scleral icterus. No injection or drainage. NECK: Supple, trachea midline. Airway widely patent. CARDIOVASCULAR: Regular rate and rhythm without murmurs, gallops, or rubs. No JVD. RESPIRATORY: Breath sounds equal bilaterally. No accessory muscle use. GASTROINTESTINAL: Abdomen soft, non-tender, nondistended. BS active. MUSCULOSKELETAL: No cyanosis, or edema. Well perfused. NEURO EXAM: Moves 4 limbs spontaneously. Conversant, oriented X 3. Confused daily, intermittently. A/P Assessment and Plan Neuro/psych: Right MCA CVA Seizure disorder NOS EtOH MRI brain was says it revealed a left thalamic subacute CVA. CTA brain/neck unremarkable. As post alteplase infusion Dr. Cordero neurology recommends aspirin 325 mg daily, continue pravastatin 40 mg daily continue to monitor cardiac telemetry to r/o afib If work up negative, recommend carbon capture power plant manager cardiac cath lab radiology technologist as outpatient to r/o afib. Continue levetiracetam 1000 mg by mouth every 8 hours Seizure precautions Acetaminophen 650 mg by mouth every 6 hours when necessary fever Hydrocodone/acetaminophen 5/325 one tablet every 4 hours when necessary pain 1-5 As needed chlordiazepoxide see protocol CV: Dyslipidemia Hypertension Continue lisinopril 10 mg by mouth twice a day, clonidine patch a 1 mg every week and increased amlodipine to 10 mg by mouth daily/on 5 mill grams daily at home Continue pravastatin 40 mg by mouth daily Resp: Nasal cannula if indicated to maintain saturations greater than equal to 92% Incentive spirometry while awake GI: Gastroesophageal reflux disease Constipation Continue pantoprazole 40 mill grams by mouth daily/home medication Docusate sodium/senna 1 tablet twice a day for bowel regimen. : No indication for Sosa catheter Endo: History of hypothyroidism Follow-up on TSH Renal: Creatinine currently within normal limits Monitor urine output Accurate I's and O's Heme: CBC within normal limits ID: Monitor for infection FEN: Replace electrolytes as clinically indicated MSK: PT/OT evaluate and treat Access - Utilize peripheral IV. Central line if indicated Prophylaxis - GI - pantoprazole - DVT - SCD/enoxaparin Level II follow-up Tariq Goodman MD Sep 09, 2017 17:29
[2017-09-09] MEDS ORDERED: LACTULOSE SYRUP 20 GM/30 ML CUP PO ONE (17:45)
[2017-09-09] MEDS ORDERED: POLYETHYLENE GLYCOL 17 GM PKG PO ONE (17:45)
[2017-09-09] MEDS ORDERED: ENOXAPARIN SODIUM 40 MG/0.4 ML SYRINGE SQ SCH (17:45)
[2017-09-10] MEDS ORDERED: amLODIPine BESYLATE 5 MG TAB PO SCH (09:00)
[2017-09-10] MEDS ORDERED: REMOVE OLD CATAPRES (CLONIDINE) PATCH T-DERMAL SCH (15:00)
== END 2017-09-09 18:16 | DRG 62 ==
LOC: PHED 13:01 → PHEDA 14:16 → N03B 18:05
PROVIDERS: ADMIT Internal Medicine Critical Care Medicine; ATTEND Internal Medicine Critical Care Medicine
DX: I63.511 Cerebral infarction due to unspecified occlusion or stenosis of right middle cerebral artery (principal); G81.94 Hemiplegia, unspecified affecting left nondominant side; G40.909 Epilepsy, unspecified, not intractable, without status epilepticus; F10.239 Alcohol dependence with withdrawal, unspecified; I10 Essential (primary) hypertension; R29.706 NIHSS score 6; E03.9 Hypothyroidism, unspecified; E78.5 Hyperlipidemia, unspecified; K59.00 Constipation, unspecified; I44.0 Atrioventricular block, first degree; Y90.9 Presence of alcohol in blood, level not specified; K21.9 Gastro-esophageal reflux disease without esophagitis; Z86.718 Personal history of other venous thrombosis and embolism; Z86.711 Personal history of pulmonary embolism; Z79.899 Other long term (current) drug therapy
CPT/HCPCS: 70450; 70496; 70498; 70553; 80048; 80053; 80061; 80307; 81001; 82550; 82552; 83036; 83605; 83735; 84100; 84484; 85025; 85384; 85610; 85730; 86850; 86900; 86901; 87641; 93005; 93306; 94150; 96365; 96375; A9579; J1630; J1953; J2060; J2270; J2997; J7030; J7050; Q9967

== ENCOUNTER 2017-12-07 13:56 | Emergency (ER) | payer MEDICARE ==
[~2017-12-07 13:56] MED LIST changes: +ACET325T15 PO; +AMLO5 PO; -AMLO5TAB96 PO; +ASPI325T33 PO; +CLON.1T T-DERMAL; -COUM3TAB PO; +FOLI1TAB6 PO; +GETGO ROLLING W1 MI1; +LEVE500 PO; +LEVO25TA4 PO; +LISI10TA3 PO; +PANT40TA3 PO; +PERI PO; +PRAV40TA PO; -SYNT25TA PO; +THIA100 PO
[2017-12-07 14:01] VITALS: BP 139/61; PULSE 88; RESP 16; TEMP 98.4; O2SAT 97
--- NOTE | 2017-12-07 14:48 | PD ---
HPI Chief Complaint: Dizziness Time Seen by Provider: 14:02 Travel History International Travel<30 days: No Contact w/Intl Traveler<30days: No Traveled to known affect area: No History of Present Illness HPI This patient was out in the yard shoveling gravel and started to get dizzy and lightheaded. He has had several other episodes where he got dizzy and lightheaded and was found to have low blood pressure. Paramedics were called and they found him of the blood pressure of 90 systolic. He reports that he was recently started on 3 blood pressure medications and he thinks they are making his blood pressure too low. He was started on amlodipine lisinopril and clonidine patch. Thankfully his clonidine patch ran out so he did not take that today. When I talked to him in the room his blood pressure is 139 systolic. His symptoms have all resolved and he feels fine. He did not have palpitations or syncope or headache or chest pain. Duration was about 30 minutes. No alleviating factors. Symptoms seem to be exacerbated by his medication. PFSH Past Medical History Arthritis: Yes Autoimmune Disease: No Anxiety: Yes Depression: No Heart Rhythm Problems: No Cancer: No Cardiovascular Problems: Yes High Cholesterol: Yes Chest Pain: No Congestive Heart Failure: No Cerebrovascular Accident: No Diminished Hearing: No Deep Vein Thrombosis: Yes Endocrine: Yes Gastrointestinal Disorders: Yes GERD: Yes Genitourinary: No Hiatal Hernia: Yes Hypertension: Yes Immune Disorder: No Musculoskeletal: Yes Neurologic: Yes Psychiatric: Yes Reproductive: No Respiratory: No Immunizations Current: No Migraines: No Seizures: Yes Thyroid Disease: Yes Ulcer: Yes Influenza Vaccination: No ?: Not Past Surgical History Abdominal Surgery: No AICD: No Arteriovenous Shunt: No Cardiac Surgery: No Ear Surgery: No Endocrine Surgery: No Eye Surgery: Yes (Rt lens implant) Genitourinary Surgery: No Gynecologic Surgery: No Insulin Pump: No Joint Replacement: Yes Oral Surgery: No Pacemaker: No Thoracic Surgery: No Other Surgery: Yes (Hip replacement, Rt lens implant) Social History Alcohol Use: Yes ( states "too much" and that she's not always sure because he hides it) Tobacco Use: No Substance Use: No Allergies-Medications (Allergen,Severity, Reaction): Coded Allergies: No Known Allergies (Unverified Allergy, Unknown, 09/09/17) Reported Meds & Prescriptions Reported Meds & Active Scripts Active Levothyroxine (Levothyroxine Sodium) 25 Mcg Tab 25 Mcg PO DAILY@0600 Gnp Vitamin B-1 (Thiamine HCl) 100 Mg Tab 100 Mg PO DAILY Folic Acid 1 Mg Tablet 1 Mg PO DAILY Gnp Senna Plus 8.6-50 mg (Sennosides-Docusate Sodium) 8.6 Mg-50 Mg Tab 1 Tab PO BID Keppra (Levetiracetam) 500 Mg Tab 1,000 Mg PO BID Pravachol (Pravastatin) 40 Mg Tab 40 Mg PO HS 30 Days Aspirin EC (Aspirin) 325 Mg Tabdr 325 Mg PO DAILY 30 Days Lisinopril 10 Mg Tab 10 Mg PO Q12HR 30 Days Norvasc (Amlodipine Besylate) 5 Mg Tab 5 Mg PO Q12H 30 Days Pantoprazole (Pantoprazole Sodium) 40 Mg Tab 40 Mg PO DAILY Walker Rolling/GetGo (Device) 1 Mis Mis Ea .XX DIRECTED Review of Systems General / Constitutional: No: Fever Eyes: No: Visual changes HENT: Positive: Lightheadedness, No: Headaches Cardiovascular: No: Chest Pain or Discomfort Respiratory: No: Shortness of Breath Gastrointestinal: No: Abdominal Pain Genitourinary: No: Dysuria Musculoskeletal: Positive: Weakness, No: Pain Skin: No Rash Neurologic: Positive: Weakness, Dizziness Psychiatric: No: Depression Endocrine: No: Polydipsia Hematologic/Lymphatic: No: Easy Bruising Physical Exam Narrative GENERAL: Well-nourished, well-developed patient in no apparent distress. SKIN: Focused skin assessment reveals no rash and nodules. Skin is Warm and dry. HEAD: Atraumatic. Normocephalic. EYES: Pupils equal and round. No scleral icterus. No injection or drainage. ENT: No nasal bleeding or discharge. Mucous membranes pink and moist. NECK: Trachea midline. No JVD. CARDIOVASCULAR: Regular rate and rhythm. No murmur appreciated. RESPIRATORY: No accessory muscle use. Clear to auscultation. Breath sounds equal bilaterally. GASTROINTESTINAL: Abdomen soft, non-tender, nondistended. Hepatic and splenic margins not palpable. MUSCULOSKELETAL: No obvious deformities. No clubbing. No cyanosis. No edema. NEUROLOGICAL: Awake and alert. No obvious cranial nerve deficits. Motor grossly within normal limits. Normal speech. PSYCHIATRIC: Appropriate mood and affect; insight and judgment normal. Data Data Last Documented VS Vital Signs Date Time Temp Pulse Resp B/P (MAP) Pulse Ox O2 Delivery O2 Flow Rate FiO2 12/07/17 15:02 79 131/51 (77) 96 12/07/17 14:01 98.4 16 Orders Orders Electrocardiogram (12/07/17 ) Complete Blood Count With Diff (12/07/17 14:21) Basic Metabolic Panel (Bmp) (12/07/17 14:21) Labs Laboratory Tests Test 12/07/17 14:50 White Blood Count 10.7 TH/MM3 Red Blood Count 3.76 MIL/MM3 Hemoglobin 11.6 GM/DL Hematocrit 35.1 % Mean Corpuscular Volume 93.4 FL Mean Corpuscular Hemoglobin 30.9 PG Mean Corpuscular Hemoglobin Concent 33.1 % Red Cell Distribution Width 11.9 % Platelet Count 227 TH/MM3 Mean Platelet Volume 8.1 FL Neutrophils (%) (Auto) 79.0 % Lymphocytes (%) (Auto) 8.5 % Monocytes (%) (Auto) 9.8 % Eosinophils (%) (Auto) 2.1 % Basophils (%) (Auto) 0.6 % Neutrophils # (Auto) 8.5 TH/MM3 Lymphocytes # (Auto) 0.9 TH/MM3 Monocytes # (Auto) 1.0 TH/MM3 Eosinophils # (Auto) 0.2 TH/MM3 Basophils # (Auto) 0.1 TH/MM3 CBC Comment DIFF FINAL Differential Comment Blood Urea Nitrogen 24 MG/DL Creatinine 2.00 MG/DL Random Glucose 78 MG/DL Calcium Level 9.2 MG/DL Sodium Level 138 MEQ/L Potassium Level 4.5 MEQ/L Chloride Level 107 MEQ/L Carbon Dioxide Level 23.8 MEQ/L Anion Gap 7 MEQ/L Estimat Glomerular Filtration Rate 33 ML/MIN MDM Medical Decision Making Medical Screen Exam Complete: Yes Emergency Medical Condition: Yes Medical Record Reviewed: Yes Differential Diagnosis Vasovagal episode, cardiac arrhythmia, medication side effect Narrative Course I have reviewed the patient's electronic medical record. I reviewed his EKG which shows sinus rhythm without ectopy or ST elevation Extended cardiac monitoring reveals sinus rhythm without ectopy CBC is normal Metabolic profile shows elevated creatinine of 2, slightly increased from prior but his creatinines were elevated in August of this year Patient feels fine at this time We ambulated him around the department and he is asymptomatic Blood pressures have been in the 130s throughout his stay Patient is going to stop his lisinopril. He will not refill his clonidine patch. He will take 5 mg daily amlodipine and track his pressures closely. He should discuss this with his prescribing physician Diagnosis Primary Impression: Hypotensive episode Additional Impressions: Pre-syncope Medication side effect Additional Instructions: Check and record blood pressure daily Discuss with your physician Med/Other Pt SpecificInfo: Other Disposition: 01 DISCHARGE HOME Condition: Stable Tonio Wong MD Dec 07, 2017 14:48
[2017-12-07 14:55] LABS: AUTOMATED NEUTROPHIL # 8.5 TH/MM3 (1.8-7.7); BASOPHIL # 0.1 TH/MM3 (0-0.2); BASOPHIL % 0.6 % (0.0-2.0); EOSINOPHIL # 0.2 TH/MM3 (0-0.4); EOSINOPHIL % 2.1 % (0.0-4.0); HEMATOCRIT 35.1 % (39.0-51.0); HEMOGLOBIN 11.6 GM/DL (13.0-17.0); LYMPH % 8.5 % (9.0-44.0); LYMPHOCYTE # 0.9 TH/MM3 (1.0-4.8); MEAN CELL VOLUME 93.4 FL (80.0-100.0); MEAN CORPUSCULAR HEMOGLOBIN 30.9 PG (27.0-34.0); MEAN CORPUSCULAR HGB CONC 33.1 % (32.0-36.0); MEAN PLATELET VOLUME 8.1 FL (7.0-11.0); MONO % 9.8 % (0.0-8.0); PLATELET COUNT 227 TH/MM3 (150-450); RED BLOOD COUNT 3.76 MIL/MM3 (4.50-5.90); RED CELL DISTRIBUTION WIDTH 11.9 % (11.6-17.2); WHITE BLOOD COUNT 10.7 TH/MM3 (4.0-11.0)
[2017-12-07 15:02] VITALS: BP 131/51; PULSE 79; O2SAT 96
[2017-12-07 15:05] LABS: BICARBONATE 23.8 MEQ/L (21.0-32.0); CALCIUM 9.2 MG/DL (8.5-10.1)
--- NOTE | 2017-12-08 23:03 | EKG ---
Date Performed: 12/07/2017 Time Performed: 14:28:15 PTAGE: 72 years EKG: Sinus rhythm INFERIOR ST ELEVATION, NO RECIPROCAL CHANGES PREVIOUS TRACING : 08/29/2017 15.04 Compared to previous tracing, inferior ST elevation present DOCTOR: Oswaldo Du Interpretating Date/Time 12/08/2017 23:03:03
== END 2017-12-07 15:56 | disposition home or self-care (01) ==
LOC: PHED 13:56
DX: I95.9 Hypotension, unspecified (principal); R55 Syncope and collapse; F41.9 Anxiety disorder, unspecified; M19.90 Unspecified osteoarthritis, unspecified site; E78.00 Pure hypercholesterolemia, unspecified; K21.9 Gastro-esophageal reflux disease without esophagitis; E07.9 Disorder of thyroid, unspecified; Z86.718 Personal history of other venous thrombosis and embolism; Z79.82 Long term (current) use of aspirin
CPT/HCPCS: 80048; 85025; 93005; 99284